=== PATIENT | male | born 1960 | race Caucasian/White ===

== ENCOUNTER 2022-10-31 18:49 | Emergency (ER) | payer MEDICAID, SELFPAY ==
--- NOTE | 2022-10-31 18:51 | XRR_ITS ---
PROCEDURE INFORMATION: Exam: XR Right Foot Exam date and time: 10/31/2022 6:55 PM Age: 62 years old Clinical indication: Pain; Foot; Right; Additional info: Injury TECHNIQUE: Imaging protocol: Radiologic exam of the right foot. Views: 3 or more views. COMPARISON: No relevant prior studies available. FINDINGS: Bones/joints: No acute fracture or dislocation. Mineralization is normal. Mild degenerative change at the great toe MTP joint. Joints are otherwise maintained. Soft tissues: Soft tissue swelling of the anterior ankle and dorsal foot. XR/XR foot RT min 3V* [id number] IMPRESSION: Soft tissue swelling without acute fracture.
[2022-10-31 18:59] VITALS: BP 104/59; PULSE 87; RESP 16; TEMP 36.7; O2SAT 98; BMI 25.0
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
[2022-10-31 19:28] VITALS: BP 135/66; PULSE 93; RESP 18; O2SAT 100
[2022-10-31 19:38] LABS: Basophils % 0.3 %; Hematocrit 35.2 % (42.0-52.0); Hemoglobin 11.4 g/dL (11.7-16.6); Lymphocytes # 0.3 10^3/uL (0.8-4.8); Mean Corpuscular HGB Conc 32.4 g/dL (30.0-36.0); Mean Corpuscular Hemoglobin 23.7 pg (28.0-34.0); Mean Platelet Volume 10.8 fL (7.4-10.4); Monocytes # 0.2 10^3/uL (0.2-0.9); Monocytes % 6.1 %; Neutrophils # 3.18 10^3/uL (1.8-7.7); Neutrophils % 84.8 %; Nucleated Red Blood Cells % 0 %; Platelet Count 76 10^3/cmm (130-400); Red Blood Count 4.82 10^6/uL (4.1-5.3); Red Cell Distribution Width 16.1 % (12.1-15.1); White Blood Count 3.8 10^3/uL (4.0-10.0)
[2022-10-31 19:47] LABS: Anion Gap 11.1 (5-19); Blood Urea Nitrogen 15 mg/dL (8-23); C Reactive Protein 104.8 mg/L (0.0-4.9); Carbon Dioxide 27 mmol/L (22-29); Chloride 91 mmol/L (98-107); Creatinine Clr Calc Pharmacy 82.6824; Glomerular Filtration Rate 85.5 mL/min (90-130); Glucose 99 mg/dL (65-115); Osmolality Calculated 263 mOsm/kg (285-295); Potassium 3.1 mmol/L (3.5-5.1); Sodium 126 mmol/L (136-145); Uric Acid 3.8 mg/dL (3.4-7.0)
[2022-10-31] MEDS: sodium chloride 0.9% 1,000 ML 999 ML IV (20:00)
[2022-10-31] MEDS: cefTRIAXone 1,000 MG in sodium chloride 0.9% (plus) 50 ML 100 MG IV (20:01)
[2022-10-31 20:08] VITALS: BP 140/75; PULSE 99; RESP 18; O2SAT 99
[2022-10-31 21:30] VITALS: BP 124/70; PULSE 98; RESP 18; O2SAT 98
[2022-10-31 21:32] VITALS: BP 124/70; PULSE 95; RESP 18; O2SAT 97
== END 2022-10-31 21:41 | disposition home or self-care (01) ==
PROVIDERS: Emergency Provider Nurse Practitioner Family
DX: L03.115 Cellulitis of right lower limb (principal); L02.415 Cutaneous abscess of right lower limb; E86.0 Dehydration
CPT/HCPCS: 73630; 80048; 84550; 85025; 86140; 93971; 96365; 99285; J0696; J7030

== ENCOUNTER 2023-03-22 05:02 | Emergency (ER) | payer MEDICAID, SELFPAY ==
[2023-03-22 05:13] VITALS: BP 174/101; PULSE 100; RESP 18; TEMP 37.3; O2SAT 98
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
[2023-03-22 05:18] LABS: Glucose Point of Care 87 mg/dL (70-110)
--- NOTE | 2023-03-22 05:21 | ECG_ITS ---
[facility] Test Date: 2023-03-22 Pat Name: Ashish Forrest Department: Room: Gender: Male Radio Installer: : 1960 Requested By: Ike Ledezma Order Number: [id number] Carol MD: Iman Olson M.D. Measurements Intervals [place] Rate: 99 P: 72 FL: 140 QRS: 65 QRSD: 89 T: 56 QT: 352 QTc: 452 Interpretive Statements SINUS RHYTHM Normal EKG No previous ECG available for comparison Electronically Signed On 03-22-2023 16:35:29 EVENT SECURITY OFFICER by Iman Olson M.D. [email or web address] system [id number] f
--- NOTE | 2023-03-22 05:21 | XRR_ITS ---
PROCEDURE INFORMATION: Exam: XR Chest Exam date and time: 03/22/2023 5:25 AM Age: 63 years old Clinical indication: Chest wall pain; Additional info: Cp TECHNIQUE: Imaging protocol: Radiologic exam of the chest. Views: 1 view. COMPARISON: No relevant prior studies available. FINDINGS: Lungs: Calcified granuloma in the left lower lobe. No acute infiltrate or effusion. Pleural spaces: Unremarkable. No pleural effusion. No pneumothorax. Heart/Mediastinum: Unremarkable. No cardiomegaly. Bones/joints: Unremarkable. XR/XR chest 1V portable [id number] IMPRESSION: No acute findings.
[2023-03-22 05:25] LABS: Basophils % 0.2 %; Hematocrit 32.4 % (37-53); Lymphocytes # 0.6 10^3/uL (0.8-4.8); Mean Corpuscular HGB Conc 31.5 g/dL (30-55); Mean Platelet Volume 9.6 fL (7.4-10.4); Monocytes # 0.3 10^3/uL (0.2-0.9); Monocytes % 6.6 %; Neutrophils % 80.2 %; Nucleated Red Blood Cells % 0 %; Platelet Count 115 10^3/cmm (157-399); Red Blood Count 4.44 10^6/uL (3.85-5.65); White Blood Count 4.24 10^3/uL (3.29-11.43)
[2023-03-22 05:41] LABS: Troponin(5th) Baseline 9 ng/L (0-15)
[2023-03-22 05:43] LABS: Alanine Aminotransferase 36 U/L (0-41); Albumin Level 3.6 g/dL (3.5-5.2); Alkaline Phosphatase 101 U/L (40-130); Chloride 100 mmol/L (98-107); Sodium 133 mmol/L (136-145)
[2023-03-22 05:57] LABS: Aspartate Amino Transferase 39 U/L (0-40); Blood Urea Nitrogen 17 mg/dL (8-23); Calcium 8.9 mg/dL (8.5-10.5); Carbon Dioxide 24 mmol/L (22-29); Creatinine Clr Calc Pharmacy 71.5197; Globulin 5.1 g/dL (1.3-4.6); Glomerular Filtration Rate 75.5 mL/min (90-130); Glucose 83 mg/dL (65-115); Osmolality Calculated 277 mOsm/kg (285-295); Total Bilirubin 0.7 mg/dL (0.15-1.2); Total Protein 8.7 g/dL (6.6-8.7)
[2023-03-22 06:19] VITALS: BP 174/101; PULSE 100; RESP 18; TEMP 37.3; O2SAT 98
== END 2023-03-22 06:20 | disposition home or self-care (01) ==
PROVIDERS: Emergency Provider Emergency Medicine
DX: L03.115 Cellulitis of right lower limb (principal)
CPT/HCPCS: 36416; 71045; 80053; 82962; 84484; 85025; 93005; 99285

== ENCOUNTER 2023-05-18 18:43 | Emergency (ER) | payer BC, MEDICAID, SELFPAY ==
[2023-05-18] VITALS (10 sets, daily range): BP systolic 110–132; BP diastolic 57–74; PULSE 102–108; RESP 17–22; TEMP 36.6; O2SAT 95–100
--- NOTE | 2023-05-18 19:02 | CTR_ITS ---
PROCEDURE INFORMATION: Exam: CT Abdomen And Pelvis With Contrast Exam date and time: 05/18/2023 7:09 PM Age: 63 years old Clinical indication: Vomiting; Patient HX: Active hematemesis. ; Additional info: Upper gi bleeding TECHNIQUE: Imaging protocol: Computed tomography of the abdomen and pelvis with contrast. Radiation optimization: All CT scans at this facility use at least one of these dose optimization techniques: automated exposure control; mA and/or kV adjustment per patient size (includes targeted exams where dose is matched to clinical indication); or iterative reconstruction. Contrast material: OMNI 350; Contrast volume: 100 ml; Contrast route: INTRAVENOUS (IV); COMPARISON: CR XR chest 1V portable [id number] 03/22/2023 5:25 AM RADIATION DOSE METRICS: Total DLP (mGy-cm): 570.87 FINDINGS: Liver: Cirrhotic liver with hypertrophy of the lateral segment left lobe and caudate lobe. There is a 2.4 x 1.8 cm hypodense lesion in the lateral cortex of the lobe of the liver (series 3, image 33). Given the underlying liver cirrhosis this is concerning for hepatocellular carcinoma until proven otherwise. Consider liver MRI for further evaluation. Gallbladder and bile ducts: Multiple peripherally calcified stones in the gallbladder. Pancreas: Normal. No ductal dilation. Spleen: Splenomegaly with the spleen measuring up to 16.4 cm in length. Multiple punctate calcifications in the spleen consistent with prior granulomatous infection. Adrenal glands: Normal. No mass. Kidneys and ureters: Normal. No hydronephrosis. Stomach and bowel: Unremarkable. No obstruction. No mucosal thickening. Appendix: No evidence of appendicitis. Intraperitoneal space: Unremarkable. No free air. No significant fluid collection. Vasculature: Esophageal varices and upper abdominal varices present. Severe atherosclerotic disease abdominal aorta. Lymph nodes: Multiple enlarged upper abdominal lymph nodes including a peripancreatic lymph node measuring up to 13 mm in short axis and an aortocaval lymph node measuring up to 8 mm in short axis. While these may be reactive in nature metastatic disease can not be excluded on this examination. Urinary bladder: Unremarkable as visualized. Reproductive: Unremarkable as visualized. Bones/joints: Unremarkable. No acute fracture. Soft tissues: Unremarkable. CT/CT abdomen pelvis w con* [id number] IMPRESSION: 1. Cirrhotic liver with hypertrophy of the lateral segment left lobe and caudate lobe. There is a 2.4 x 1.8 cm hypodense lesion in the lateral cortex of the lobe of the liver (series 3, image 33). Given the underlying liver cirrhosis this is concerning for hepatocellular carcinoma until proven otherwise. Consider liver MRI for further evaluation. 2. Multiple enlarged upper abdominal lymph nodes including a peripancreatic lymph node measuring up to 13 mm in short axis and an aortocaval lymph node measuring up to 8 mm in short axis. While these may be reactive in nature metastatic disease can not be excluded on this examination. 3. Esophageal varices and upper abdominal varices present.
--- NOTE | 2023-05-18 19:03 | ECG_ITS ---
[facility] Test Date: 2023-05-18 Pat Name: Ashish Forrest Department: Room: Gender: Male Political Science Chair: : 1960 Requested By: Dashawn Aldana Order Number: [id number] Carol MD: Ana Lilia Pace M.D. Measurements Intervals [place] Rate: 103 P: 60 DE: 143 QRS: 25 QRSD: 89 T: 55 QT: 367 QTc: 482 Interpretive Statements SINUS TACHYCARDIA ABNORMAL RHYTHM ECG Compared to ECG 03/22/2023 05:19:29 Sinus rhythm no longer present Electronically Signed On 05-19-2023 21:55:36 INSULATION POWER UNIT TENDER by Ana Lilia Pace M.D. [email or web address] county [email or web address] healthcare system [email or web address]/[id number] f
[2023-05-18] MEDS: iohexol 350 mg/mL 500 mL Btl (per mL) IV (19:13)
[2023-05-18] MEDS: tranexamic acid 1,000 MG/100 ML PREMIX 600 MG IV (19:17)
[2023-05-18] MEDS: pantoprazole 40 mg SDV 80 MG IVP (19:19)
[2023-05-18] MEDS: octreotide 100 mcg/mL SDV 50 MCG IVP (19:20)
[2023-05-18] MEDS: lactated ringers 1,000 ML 999 ML IV (19:25)
[2023-05-18 19:26] LABS: Basophils % 0.7 %; Lymphocytes # 0.5 10^3/uL (0.8-4.8); Lymphocytes % 17.6 %; Mean Corpuscular HGB Conc 30.6 g/dL (30-55); Mean Corpuscular Hemoglobin 22.1 pg (27-33); Mean Corpuscular Volume 72.3 fl (82-101); Mean Platelet Volume 9.9 fL (7.4-10.4); Monocytes # 0.2 10^3/uL (0.2-0.9); Neutrophils # 2.24 10^3/uL (1.8-7.7); Neutrophils % 74.4 %; Nucleated Red Blood Cells % 0 %; Platelet Count 117 10^3/cmm (157-399); Red Blood Count 2.71 10^6/uL (3.85-5.65); Red Cell Distribution Width 17.3 % (12.1-15.1); White Blood Count 3.01 10^3/uL (3.29-11.43)
[2023-05-18 19:31] LABS: Hematocrit 19.6 % (37-53)
[2023-05-18 19:33] LABS: Partial Thromboplastin Time 30.1 SECONDS (23.9-36.7)
[2023-05-18 19:37] LABS: Alanine Aminotransferase 24 U/L (0-41); Albumin Level 2.4 g/dL (3.5-5.2); Alkaline Phosphatase 62 U/L (40-130); Anion Gap 10.7 (5-19); Aspartate Amino Transferase 24 U/L (0-40); Blood Urea Nitrogen 18 mg/dL (8-23); Calcium 7.4 mg/dL (8.5-10.5); Carbon Dioxide 24 mmol/L (22-29); Chloride 100 mmol/L (98-107); Globulin 3.9 g/dL (1.3-4.6); Glomerular Filtration Rate 97.6 mL/min (90-130); Glucose 127 mg/dL (65-115); Lipase 23 U/L (13-60); Osmolality Calculated 275 mOsm/kg (285-295); Potassium 3.7 mmol/L (3.5-5.1); Sodium 131 mmol/L (136-145); Total Bilirubin 0.4 mg/dL (0.15-1.2); Total Protein 6.3 g/dL (6.6-8.7)
[2023-05-18 19:39] LABS: Alcohol Level < 10 mg/dL (0-10)
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
[2023-05-18 20:16] LABS: Specific Gravity, Urine 1.015 (1.005-1.030); Urine Appearance Clear (CLEAR); Urine Color Yellow (Yellow); pH Urine 5 (5-7)
[2023-05-18 20:17] LABS: Add Urine Microscopic? YES; Bacteria Urine TRACE /hpf; Bilirubin Urine Neg (Negative); Blood Urine 2+ (Negative); Glucose Urine UA Norm (Normal); Ketones Urine Negative (Negative); Leukocyte Esterase Urine Trace (Negative); Nitrate Urine Negative (Negative); Protein Urine Trace (Negative); RBC Urine 0-4 /hpf (0-2); Squamous Epithelial Cell Urine 0-4 /hpf (0-5); Urobilinogen Urine 4 mg/dL (Negative)
[2023-05-18 20:18] LABS: Add Urine Culture? Yes; Amorphous Sediment Urine TRACE /hpf; Hyaline Casts Urine 0-4 /lpf
[2023-05-18] MEDS: sodium chloride 0.9% 100 mL Bag 50 ML IV ×2 (20:31→20:42)
--- NOTE | 2023-05-18 20:39 | PC.NURSE ---
Verified 2 units PRBC- A pos with keyana martin rn.
== END 2023-05-18 20:58 | disposition short-term general hospital (02) ==
PROVIDERS: Emergency Provider Emergency Medicine
DX: K92.2 Gastrointestinal hemorrhage, unspecified (principal); I85.00 Esophageal varices without bleeding
CPT/HCPCS: 36430; 74177; 80053; 80307; 81001; 83690; 85025; 85610; 85730; 86850; 86900; 86920; 87086; 93005; 96361; 96374; 96375; 99285; C9113; J2354; J7120; P9016; Q9967

== ENCOUNTER 2023-07-16 18:36 | Emergency (ER) | payer BC, MEDICAID, SELFPAY ==
[2023-07-16 19:05] VITALS: BP 158/71; PULSE 127; RESP 16; TEMP 37.7; O2SAT 97
--- NOTE | 2023-07-16 19:24 | W.ED.GENADLT ---
HPI - General Adult General: Chief complaint: General Medical Stated complaint: nausea head neck and stomach hurt Time Seen by Provider: 07/16/23 19:14 History of Present Illness: 63-year-old male presents emergency department with complaints of feeling nauseated having a headache and chills over the previous 3 days. He states he is also had watery diarrhea for the previous 3 days. He states that he has a history of alcohol use and has not drank now for the previous 18 years. He states in April he was seen and transferred for esophageal varices that were bleeding. He states he does feel nauseated but has not had any active vomiting. He states he was diagnosed with hepatitis C and cirrhosis of the liver previously. He does endorse recent sick contacts with similar illnesses. He states he has had fatigue and malaise over the same 3 days. He states he is not actively receiving treatment for his hepatitis C. He denies chest pain or shortness of breath. Associated symptoms: Reports nausea; Deny vomiting Review of Systems General: Reports: 10 or more systems reviewed and unremarkable except in HPI and below GI: Reports: abdominal pain and nausea; Denies: vomiting, hematemesis, hematochezia or melena Physical Exam Narrative: EXAM NARRATIVE: Constitutional: the patient appears well nourished and with normal development. Vital signs reviewed as documented. HENMT: Normocephalic, atraumatic. External ears normal appearance without drainage. Nose without drainage, normal appearance. Mucus membranes moist. Neck is supple, No jugular venous distension, trachea is midline, no appreciable carotid bruits. No lymphadenopathy. No meningeal signs. Flexion, extension and lateral rotation is without pain. Eyes: Pupils are equal, round, reactive to light and accommodation. No scleral icterus. Extra-ocular movement are intact. Thorax is symmetrical and with equal rise and fall with respirations. Resp: Lungs are clear to auscultation. No wheezes, rales, crackles or ronchi at present. Cardio: Regular rate and rhythm. Positive S1, S2. No appreciable murmurs, rubs or gallops. GI: Abdominal exam reveals normal bowel sounds to all quadrants. No organomegaly. No obvious palpable masses noted. No hepatomegally appreciated. Soft, non-tender to palpation. Extremity: Extremities are non-edematous and both femoral and pedal pulses are 2+ and equal bilaterally. Moves all extremities well, sensation in all extremities. Neuro: Alert and oriented x4, person, place, time and situation. Cranial nerves II through XII are grossly intact, there is no focal neurological deficits that I can appreciate at present. Motor strength in the upper and lower extremities are equal and bilateral 5/5. Psych: Cooperative, calm, normal thought process, appropriate judgment. Skin: No lesions, rashes. No gross abnormalities noted. Back: Symmetrical, no obvious deformity, No CVA tenderness Course Reevaluation(s): Reevaluation #1: I discussed the laboratory findings with the patient and advised him that we are currently awaiting the CT scan of his abdomen pelvis. He did have a large watery bowel movement while he was here in the emergency department. Time: 20:54 Vital Signs: Vital signs: Vital Signs Temperature 99.8 F H 07/16/23 19:05 Pulse Rate 122 H 07/16/23 20:38 Respiratory Rate 16 07/16/23 20:38 Blood Pressure 160/89 07/16/23 20:38 Pulse Oximetry 97 07/16/23 20:38 Oxygen Delivery Me thod Room Air 07/16/23 19:05 [facility] - General Adult Medical Decision Making Physical exam completed and documented I will obtain a CBC and CMP as well as a PT/INR and a lipase level given his history of cirrhosis. Patient does have a history of cirrhosis secondary to alcohol abuse he also has esophageal varices that he had banded in April 2022 per the patient's medical record. Differential diagnosis includes hepatic encephalopathy, gastroenteritis, anemia secondary to chronic disease, worsening cirrhosis, hepatic failure, spontaneous bacterial peritonitis, Differential Diagnosis Differential diagnosis includes hepatic encephalopathy, gastroenteritis, anemia secondary to chronic disease, worsening cirrhosis, hepatic failure, spontaneous bacterial peritonitis, Medical Records I reviewed the patient's medical records. Lab Data I reviewed the patient's lab results. 07/16/23 19:12 07/16/23 19:12 Radiology Impressions Abdomen/Pelvis CT 07/16/23 20:07 IMPRESSION: 1. Diffuse thickening of the gastric wall that may be secondary to gastritis or underdistension. 2. Cholelithiasis and mild common bile duct dilatation to 9 mm. Right upper quadrant ultrasound may be helpful if clinically indicated. 3. Cirrhotic liver with 2 suspicious hypodense lesions in the right lobe. Consider MRI for further characterization. 4. Marked splenomegaly. 5. Prominent splenic hilum and paraesophageal varices. 6. Punctate right nonobstructive nephrolithiasis. Laboratory Results WBC 6.65 10^3/uL (3.29-11.43) 07/16/23 19:12 RBC 4.35 10^6/uL (3.85-5.65) 07/16/23 19:12 Hgb 9.00 g/dL (11.27-16.99) L 07/16/23 19:12 Hct 30.3 % (37-53) L 07/16/23 19:12 MCV 69.7 fl (82-101) L 07/16/23 19:12 MCH 20.7 pg (27-33) L 07/16/23 19:12 MCHC 29.7 g/dL (30-55) L 07/16/23 19:12 RDW 17.0 % (12.1-15.1) H 07/16/23 19:12 Plt Count 95 10^3/cmm (157-399) L 07/16/23 19:12 MPV 9.7 fL (7.4-10.4) 07/16/23 19:12 Neut % (Auto) 93.1 % 07/16/23 19:12 Lymph % (Auto) 3.8 % 07/16/23 19:12 [place] % (Auto) 2.6 % 07/16/23 19:12 Eos % (Auto) 0.0 % 07/16/23 19:12 Baso % (Auto) 0.2 % 07/16/23 19:12 Neut # (Auto) 6.20 10^3/uL (1.8-7.7) 07/16/23 19:12 Lymph # (Auto) 0.3 10^3/uL (0.8-4.8) L 07/16/23 19:12 [place] # (Auto) 0.2 10^3/uL (0.2-0.9) 07/16/23 19:12 Eos # (Auto) 0.0 10^3/uL (0.0-0.8) 07/16/23 19:12 Baso # (Auto) 0.0 10^3/uL (0.0-0.1) 07/16/23 19:12 Nucleated RBC % (auto) 0 % 07/16/23 19:12 Nucleated RBCs # 0.0 /100WBC 07/16/23 19:12 PT 16.00 SECONDS (12.1-14.9) H 07/16/23 19:12 INR 1.24 (0.8-1.2) H 07/16/23 19:12 Sodium 135 mmol/L (136-145) L 07/16/23 19:12 Potassium 3.6 mmol/L (3.5-5.1) 07/16/23 19:12 Chloride 101 mmol/L (98-107) 07/16/23 19:12 Carbon Dioxide 25 mmol/L (22-29) 07/16/23 19:12 Anion Gap 12.6 (5-19) 07/16/23 19:12 BUN 16 mg/dL (8-23) 07/16/23 19:12 Creatinine 0.9 mg/dL (0.7-1.2) 07/16/23 19:12 GFR Calculation 85.2 mL/min (90-130) L 07/16/23 19:12 Glucose 113 mg/dL (65-115) 07/16/23 19:12 Calculated Osmolality 282 mOsm/kg (285-295) L 07/16/23 19:12 Calcium 8.8 mg/dL (8.5-10.5) 07/16/23 19:12 Total Bilirubin 0.8 mg/dL (0.15-1.2) 07/16/23 19:12 AST 28 U/L (0-40) 07/16/23 19:12 ALT 18 U/L (0-41) 07/16/23 19:12 Alkaline Phosphatase 85 U/L (40-130) 07/16/23 19:12 Total Protein 8.7 g/dL (6.6-8.7) 07/16/23 19:12 Albumin 3.7 g/dL (3.5-5.2) 07/16/23 19:12 Globulin 5.0 g/dL (1.3-4.6) H 07/16/23 19:12 Lipase 28 U/L (13-60) 07/16/23 19:12 All radiology interpretation(s) finalized by discharge Discharge Plan Discharge Patient Disposition: Home Clinical Impression: Gastroenteritis, Anemia in chronic illness, Cirrhosis of liver Condition: Stable Prescriptions: New ondansetron HCl 4 mg tablet 4 mg PO Q6H PRN (Reason: nausea and vomiting) Qty: 14 0RF loperamide 2 mg tablet 2 mg PO QID PRN (Reason: loose stool) Qty: 30 0RF No Action amoxicillin-pot clavulanate 875-125 mg tablet 1 tab PO BID Qty: 20 0RF Discharge Orders: Discharge ED (Routine); Ordered 07/16/23 Ordered By: Jimy Valle Discharge Diet: Advance as tolerated Discharge Activity: Resume usual activity Patient Instructions: Opioid Safety, Pain Management Activity Restrictions/Additional Instructions: Activity Restrictions/Additional Instructions: Thank you for choosing [facility] for your healthcare needs today. Please realize that you were seen in the Emergency Department and that we are providing you with an emergency medical screening exam and this may not be a complete and all inclusive of all the testing and or medical work-up that you may need to determine your ailment or severity of your illness. It is very important that you follow-up as instructed with your Primary care provider or Specialist for additional evaluation and to discuss your medical treatment plan. Coding Level of Care Code ED Dampener Operator for Tessie Kearney
[2023-07-16 19:29] LABS: Basophils % 0.2 %; Hematocrit 30.3 % (37-53); Lymphocytes # 0.3 10^3/uL (0.8-4.8); Lymphocytes % 3.8 %; Mean Corpuscular HGB Conc 29.7 g/dL (30-55); Mean Corpuscular Hemoglobin 20.7 pg (27-33); Mean Corpuscular Volume 69.7 fl (82-101); Mean Platelet Volume 9.7 fL (7.4-10.4); Monocytes # 0.2 10^3/uL (0.2-0.9); Monocytes % 2.6 %; Neutrophils % 93.1 %; Nucleated Red Blood Cells % 0 %; Platelet Count 95 10^3/cmm (157-399); Red Blood Count 4.35 10^6/uL (3.85-5.65); White Blood Count 6.65 10^3/uL (3.29-11.43)
[2023-07-16 19:32] VITALS: BP 159/84; PULSE 104; RESP 18; O2SAT 97
[2023-07-16 19:43] LABS: INR 1.24 (0.8-1.2)
[2023-07-16 19:47] LABS: Alanine Aminotransferase 18 U/L (0-41); Albumin Level 3.7 g/dL (3.5-5.2); Alkaline Phosphatase 85 U/L (40-130); Anion Gap 12.6 (5-19); Aspartate Amino Transferase 28 U/L (0-40); Blood Urea Nitrogen 16 mg/dL (8-23); Calcium 8.8 mg/dL (8.5-10.5); Carbon Dioxide 25 mmol/L (22-29); Chloride 101 mmol/L (98-107); Creatinine Clr Calc Pharmacy 80.5444; Glomerular Filtration Rate 85.2 mL/min (90-130); Glucose 113 mg/dL (65-115); Lipase 28 U/L (13-60); Osmolality Calculated 282 mOsm/kg (285-295); Potassium 3.6 mmol/L (3.5-5.1); Sodium 135 mmol/L (136-145); Total Bilirubin 0.8 mg/dL (0.15-1.2); Total Protein 8.7 g/dL (6.6-8.7)
--- NOTE | 2023-07-16 20:07 | CTR_ITS ---
PROCEDURE INFORMATION: Exam: CT Abdomen And Pelvis With Contrast Exam date and time: 07/16/2023 8:15 PM Age: 63 years old Clinical indication: Abdominal pain; Patient HX: Epigastric pain with nausea. History of esophageal varices and cirrhosis. ; Additional info: Abd pain TECHNIQUE: Imaging protocol: Computed tomography of the abdomen and pelvis with contrast. Radiation optimization: All CT scans at this facility use at least one of these dose optimization techniques: automated exposure control; mA and/or kV adjustment per patient size (includes targeted exams where dose is matched to clinical indication); or iterative reconstruction. Contrast material: OMNI 350; Contrast volume: 100 ml; Contrast route: INTRAVENOUS (IV); COMPARISON: CT abdomen pelvis w con* [id number] 05/18/2023 7:09 PM RADIATION DOSE METRICS: Total DLP (mGy-cm): 518.36 FINDINGS: Lungs: The lung bases demonstrate calcified granulomas in the lingula and right lower lobe. No consolidation. Esophagus: Paraesophageal varices are seen on the included, lower esophagus. Liver: A shrunken cirrhotic liver with hypertrophy of the lateral segment of the left lobe and caudate lobe. There are now 2 suspicious hypodense lesions in the right lobe of the liver, 1 at the dome and 2nd on the lateral aspect. Gallbladder and bile ducts: There are multiple calcified gallstones. There is no significant gallbladder wall thickening or pericholecystic fluid. There are multiple calcified gallstones. There is no significant gallbladder wall thickening or pericholecystic fluid. There is mild or bile duct dilatation to 9 mm. Pancreas: Normal in size and homogeneous enhancement. No ductal dilation. Spleen: The spleen measured 20.8 cm in length. Adrenal glands: The adrenal glands are normal. Kidneys and ureters: There is no hydronephrosis. No obstructive ureteral calculi are identified. In the right kidney, there is a punctate 3 mm nonobstructing calculus. Stomach and bowel: There is no evidence of small bowel or colonic obstruction. Diffuse thickening of the gastric wall that may be secondary to gastritis or underdistension. Appendix: A normal appendix is identified. Intraperitoneal space: No free air. No significant fluid collection. Vasculature: Prominent splenic hilum and paraesophageal varices. There is mild atherosclerotic calcification of the abdominal aorta and its branches without aneurysm. Lymph nodes: No enlarged retroperitoneal or mesenteric lymph nodes. Urinary bladder: The bladder shows a normal contour and is free of calcific opacities. Reproductive: Unremarkable as visualized. Bones/joints: No acute fracture. Soft tissues: A small umbilical hernia containing a loop of bowel. CT/CT abdomen pelvis w con* [id number] IMPRESSION: 1. Diffuse thickening of the gastric wall that may be secondary to gastritis or underdistension. 2. Cholelithiasis and mild common bile duct dilatation to 9 mm. Right upper quadrant ultrasound may be helpful if clinically indicated. 3. Cirrhotic liver with 2 suspicious hypodense lesions in the right lobe. Consider MRI for further characterization. 4. Marked splenomegaly. 5. Prominent splenic hilum and paraesophageal varices. 6. Punctate right nonobstructive nephrolithiasis.
[2023-07-16] MEDS: iohexol 350 mg/mL 500 mL Btl (per mL) IV (20:15)
[2023-07-16 20:38] VITALS: BP 160/89; PULSE 122; RESP 16; O2SAT 97
== END 2023-07-16 21:05 | disposition home or self-care (01) ==
PROVIDERS: Emergency Medicine; Emergency Provider Internal Medicine
DX: K52.9 Noninfective gastroenteritis and colitis, unspecified (principal); D63.8 Anemia in other chronic diseases classified elsewhere; K74.60 Unspecified cirrhosis of liver
CPT/HCPCS: 36415; 74177; 80053; 83690; 85025; 85610; 99285; Q9967

== ENCOUNTER 2024-03-11 13:38 | Emergency (ER) | payer BC, MEDICAID, SELFPAY ==
[2024-03-11 13:42] VITALS: BP 134/76; PULSE 90; RESP 16; TEMP 37.1; O2SAT 99; BMI 22.8
[2024-03-11 14:42] VITALS: BP 123/70; PULSE 86; RESP 14; O2SAT 99
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
[2024-03-11] MEDS: cefTRIAXone 1,000 MG in water for injection-sterile 2.1 ML 1 MG IM (15:03)
[2024-03-11 15:17] VITALS: BP 136/74; PULSE 83; O2SAT 99
== END 2024-03-11 15:18 | disposition home or self-care (01) ==
PROVIDERS: Emergency Provider Physician Assistant
DX: L02.415 Cutaneous abscess of right lower limb (principal)
CPT/HCPCS: 96372; 99284; J0696

== ENCOUNTER 2024-04-19 16:28 | Emergency (ER) | payer BC, MEDICAID, SELFPAY ==
[2024-04-19 16:32] VITALS: BP 126/67; PULSE 89; RESP 16; TEMP 36.3; O2SAT 99; BMI 24.3
[2024-04-19 17:00] LABS: Basophils % 0.5 %; Hematocrit 39.6 % (37-53); Lymphocytes # 0.5 10^3/uL (0.8-4.8); Lymphocytes % 12.8 %; Mean Corpuscular HGB Conc 30.6 g/dL (30-55); Mean Corpuscular Hemoglobin 21.7 pg (27-33); Mean Corpuscular Volume 71.1 fl (82-101); Mean Platelet Volume 9.3 fL (7.4-10.4); Monocytes # 0.3 10^3/uL (0.2-0.9); Monocytes % 6.6 %; Neutrophils # 3.24 10^3/uL (1.8-7.7); Neutrophils % 79.6 %; Nucleated Red Blood Cells % 0 %; Platelet Count 126 10^3/cmm (157-399); Red Blood Count 5.57 10^6/uL (3.85-5.65); Red Cell Distribution Width 17.2 % (12.1-15.1); White Blood Count 4.07 10^3/uL (3.29-11.43)
[2024-04-19 17:19] LABS: Alanine Aminotransferase 26 U/L (0-41); Albumin Level 3.2 g/dL (3.5-5.2); Alkaline Phosphatase 79 U/L (40-130); Anion Gap 11.5 (5-19); Aspartate Amino Transferase 34 U/L (0-40); Blood Urea Nitrogen 11 mg/dL (8-23); Carbon Dioxide 27 mmol/L (22-29); Chloride 98 mmol/L (98-107); Creatinine Clr Calc Pharmacy 89.4356; Globulin 5.5 g/dL (1.3-4.6); Glomerular Filtration Rate 97.3 mL/min (90-130); Glucose 102 mg/dL (65-115); Lipase 20 U/L (13-60); Osmolality Calculated 274 mOsm/kg (285-295); Potassium 4.5 mmol/L (3.5-5.1); Sodium 132 mmol/L (136-145); Total Protein 8.7 g/dL (6.6-8.7)
--- NOTE | 2024-04-19 17:38 | XRR_ITS ---
PROCEDURE INFORMATION: Exam: XR Complete Acute Abdomen Series Including Chest Exam date and time: 04/19/2024 5:43 PM Age: 64 years old Clinical indication: Constipation; Abdominal pain; Generalized; Additional info: Luq llq abd pain, no bm in 5 days TECHNIQUE: Imaging protocol: Radiologic exam. Complete acute abdomen series, including 2 or more views of the abdomen and a single view chest. COMPARISON: CT abdomen pelvis w con* [id number] 07/16/2023 8:15 PM FINDINGS: Lungs: Calcified granulomas in the lung bases. The lungs are otherwise clear. No consolidation. Pleural spaces: Normal. No pleural effusions. No pneumothorax. Heart/Mediastinum: Normal. No cardiomegaly. Gastrointestinal tract: Scattered gas and stool in normal caliber colon. Gas-filled small bowel measuring up to 2.5 cm. No obstruction or differential air-fluid levels. Intraperitoneal space: No visible pneumoperitoneum. Bones/joints: Normal. No acute fracture. Soft tissues: Normal. XR/XR acute abdomen series [id number] IMPRESSION: 1. Nonspecific nonobstructive bowel gas pattern. 2. No acute pulmonary findings.
[2024-04-19 18:01] VITALS: BP 131/86; PULSE 92; O2SAT 100
[2024-04-19 18:40] LABS: Influenza A NEGATIVE (Negative); Influenza B NEGATIVE (Negative); Respiratory Syncytial Virus Ce NEGATIVE (Negative)
[2024-04-19 18:51] VITALS: PULSE 80; RESP 16; O2SAT 100
[2024-04-19 19:12] LABS: Covid PCR Positive (Negative)
[2024-04-19 19:36] LABS: Bilirubin Urine Negative (Negative); Blood Urine Negative (Negative); Glucose Urine UA Negative (Normal); Ketones Urine Negative (Negative); Leukocyte Esterase Urine Negative (Negative); Nitrate Urine Negative (Negative); Protein Urine Trace (Negative); Specific Gravity, Urine 1.021 (1.005-1.030); Urine Appearance Cloudy (CLEAR); Urine Color Dark Yellow (Yellow)
[2024-04-19 19:41] LABS: Add Urine Microscopic? YES; Bacteria Urine None Seen /hpf; Hyaline Casts Urine 2.05 /lpf; Squamous Epithelial Cell Urine 0-5 /hpf (0-5); WBC Urine 0-5 /hpf (0-5)
--- NOTE | 2024-04-19 20:14 | ED_ITS ---
HPI - Abdominal Pain 2 General: Chief Complaint: Abdominal Pain Stated Complaint: abd pain Time Seen by Provider: 04/19/24 17:30 History of Present Illness: Patient is a 64-year-old man that comes to the ER today with complaints of cough, shortness of breath that is worse than baseline but primary complaint is left upper and lower quadrant abdominal pain. Onset of symptoms 5 days ago. It has also been 5 days since he had a bowel movement that was small. 2 days prior to that he had a normal bowel movement. He denies nausea vomiting Denies fever or chills. Associated Symptoms: Denies bloating, chills, constipation, GI cramping, diarrhea, dysuria, fever(s), hematochezia, hematuria, nausea and vomiting Related Data Previous Rx's Medication Instructions Recorded amoxicillin 875 mg-potassium 1 tab PO BID #20 tabs 10/31/22 clavulanate 125 mg tablet loperamide 2 mg tablet 2 mg PO QID PRN loose stool #30 07/16/23 tabs ondansetron HCl 4 mg tablet 4 mg PO Q6H PRN nausea and 07/16/23 vomiting #14 tabs Allergies Allergy/AdvReac Type Severity Reaction Status Date / Time No Known Allergies Allergy Verified 04/19/24 16:37 Review of Systems 2 General: Reports: 10 or more systems reviewed and unremarkable except in HPI and below Const: Denies: fever(s), chills, change in appetite, change in weight, fatigue or malaise Eyes: Denies: change in vision, eye discomfort, eye discharge or eye redness ENMT: Denies: throat pain, enlarged tonsils, odynophagia, hoarseness, ear or mastoid pain, ear discharge, change in hearing, tinnitus, nasal discharge, nasal congestion, post nasal drip or sinus pain Card: Denies: chest pain, palpitations, irregular heart rhythm, edema, dyspnea on exertion, orthopnea or leg pain with exertion Resp: Denies: dyspnea, productive cough, non-productive cough, wheezing, stridor or chest congestion GI: Denies: abdominal pain, nausea, vomiting, dysphagia, diarrhea, constipation, bloating, GI cramping or hematochezia : Denies: flank pain, dysuria, urinary frequency, urinary urgency, urinary hesitancy, oliguria or hematuria Musc: Denies: neck pain, back pain, extremity pain, joint pain, joint swelling, joint redness, joint warmth or muscle weakness Skin/Breast: Denies: rash, pruritus, erythema, photosensitivity or new lesions Neuro: Denies: headache(s), numbness in extremities, weakness in extremities, sensory changes, lack of coordination, difficulty walking, frequent falls, dizziness, confusion, Slurred speech present, difficulty communicating thoughts, seizure-like activity or involuntary movements Endo: Denies: polyuria, polydipsia or tired all the time Tarik/Lymph: Denies: easy bruising or easy bleeding Physical Exam 2 Const: COMMON NORMALS: no acute distress, patient oriented x3 and alert G ENERAL APPEARANCE: cooperative ORIENTATION/CONSCIOUSNESS: Yes awake, Yes oriented to person, Yes oriented to place and Yes oriented to time HENMT: COMMON NORMALS: normocephalic and atraumatic HEAD & SCALP: n ormocephalic and atraumatic FACE & SINUS: normal facial exam MOUTH: Normal oral and palatal mucosa present THROAT: posterior oropharynx normal Eye: COMMON NORMALS: Equal, round and reactive pupils present, EOMs intact bilaterally, conjunctivae normal and no scleral icterus GENERAL EYE: a ppearance normal, both eyes and all related structures ALIGNMENT: Yes alignment normal PERIORBITAL: periorbital findings normal CONJUNCTIVA: Yes conjunctivae normal PUPIL: Yes Equal, round and reactive pupils present Neck/C-Spine: COMMON NORMALS: full ROM GENERAL: Yes normal visual inspection Lymph: LYMPHATIC: no lymphadenopathy noted Chest: COMMONS NORMALS: normal inspection of the chest Breast/axilla inspection: Yes no chest deformity, asymmetry, normal contours, no nodules, masses, tenderness Resp: COMMON NORMALS: normal respiratory effort, No retractions, No use of accessory muscles and clear to auscultation bilaterally EFFORT & INSPECTION: Yes able to speak in complete sentences and Yes symmetric chest movement A USCULTATION: clear to auscultation bilaterally Cardio: COMMON NORMALS: regular rate, regular rhythm and Peripheral pulses 2+ throughout RATE: regular rate RHYTHM: regular rhythm PERIPHERAL PULSES: Peripheral pulses 2+ throughout GI: COMMON NORMALS: Normal to inspection, nondistended, normoactive bowel sounds present, Soft to palpation, non-tender and No hepatosplenomegaly present INSPECTION: Yes normal to inspection AUSCULTATION: Yes normoactive bowel sounds PALPATION: Yes Soft to palpation, Yes Tenderness to palpation present (GI) Details: LLQ and LUQ and Yes No hepatosplenomegaly present RECTAL EXAM: Yes deferred Extremity: COMMON NORMALS: normal to inspection GENERAL: Yes normal exam except as noted Neuro: COMMON NORMALS: patient oriented x3 SENSORIUM/ORIENTATION: Yes alert, Yes oriented to person, Yes oriented to place and Yes oriented to time CRANIAL NERVES: Yes CN normal except as noted Psych: COMMON NORMALS: mental status grossly normal, Normal thought process present, cooperative, activity/motor behavior normal, denies homicidal ideation and denies suicidal ideation THOUGHT PROCESS: Normal thought process present Skin: COMMON NORMALS: no rashes or lesions noted, no wounds and turgor normal GENERAL SKIN EXAM: no rashes or lesions noted and turgor normal Course 2 Vital Signs: Vital signs: Vital Signs Temperature 97.4 F L 04/19/24 16:32 Pulse Rate 80 04/19/24 18:51 Respiratory Rate 16 04/19/24 18:51 Blood Pressure 131/86 04/19/24 18:01 Pulse Oximetry 100 04/19/24 18:51 Oxygen Delivery Me thod Room Air 04/19/24 18:51 MDM - Abdominal Pain Medical Decision Making Patient evaluated in the emergency department today for complaints of abdominal pain and increasing shortness of breath. Patient underwent evaluation for abdominal pain initially. We obtained a XR of the abdomen which reveals stool nonspecific bowel gas pattern. No concern for obstruction. He has been 5 to 7 days since he had a normal bowel movement. Going to send him home with mag citrate Patient underwent laboratory evaluation which revealed thrombocytopenia, that is chronic in nature. The remainder of his labs are otherwise unremarkable. He is COVID-positive without evidence of pneumonia. At this time no further diagnostics are warranted. Regarding mildly monitor his symptoms closely and return to the emergency department for new, concerning, worsening symptoms Lab Data 04/19/24 16:54 04/19/24 16:54 Labs/Radiology: Radiology Impressions Chest/Abdomen X-ray 04/19/24 17:38 IMPRESSION: 1. Nonspecific nonobstructive bowel gas pattern. 2. No acute pulmonary findings. Laboratory Results WBC 4.07 10^3/uL (3.29-11.43) 04/19/24 16:54 RBC 5.57 10^6/uL (3.85-5.65) 04/19/24 16:54 Hgb 12.10 g/dL (11.27-16.99) 04/19/24 16:54 Hct 39.6 % (37-53) 04/19/24 16:54 MCV 71.1 fl (82-101) L 04/19/24 16:54 MCH 21.7 pg (27-33) L 04/19/24 16:54 MCHC 30.6 g/dL (30-55) 04/19/24 16:54 RDW 17.2 % (12.1-15.1) H 04/19/24 16:54 Plt Count 126 10^3/cmm (157-399) L 04/19/24 16:54 MPV 9.3 fL (7.4-10.4) 04/19/24 16:54 Neut % (Auto) 79.6 % 04/19/24 16:54 Lymph % (Auto) 12.8 % 04/19/24 16:54 [place] % (Auto) 6.6 % 04/19/24 16:54 Eos % (Auto) 0.0 % 04/19/24 16:54 Baso % (Auto) 0.5 % 04/19/24 16:54 Neut # (Auto) 3.24 10^3/uL (1.8-7.7) 04/19/24 16:54 Lymph # (Auto) 0.5 10^3/uL (0.8-4.8) L 04/19/24 16:54 [place] # (Auto) 0.3 10^3/uL (0.2-0.9) 04/19/24 16:54 Eos # (Auto) 0.0 10^3/uL (0.0-0.8) 04/19/24 16:54 Baso # (Auto) 0.0 10^3/uL (0.0-0.1) 04/19/24 16:54 Nucleated RBC % (auto) 0 % 04/19/24 16:54 Nucleated RBCs # 0.0 /100WBC 04/19/24 16:54 Sodium 132 mmol/L (136-145) L 04/19/24 16:54 Potassium 4.5 mmol/L (3.5-5.1) 04/19/24 16:54 Chloride 98 mmol/L (98-107) 04/19/24 16:54 Carbon Dioxide 27 mmol/L (22-29) 04/19/24 16:54 Anion Gap 11.5 (5-19) 04/19/24 16:54 BUN 11 mg/dL (8-23) 04/19/24 16:54 Creatinine 0.8 mg/dL (0.7-1.2) 04/19/24 16:54 GFR Calculation 97.3 mL/min (90-130) 04/19/24 16:54 Glucose 102 mg/dL (65-115) 04/19/24 16:54 Calculated Osmolality 274 mOsm/kg (285-295) L 04/19/24 16:54 Calcium 9.0 mg/dL (8.5-10.5) 04/19/24 16:54 Total Bilirubin 1.0 mg/dL (0.15-1.2) 04/19/24 16:54 AST 34 U/L (0-40) 04/19/24 16:54 ALT 26 U/L (0-41) 04/19/24 16:54 Alkaline Phosphatase 79 U/L (40-130) 04/19/24 16:54 Total Protein 8.7 g/dL (6.6-8.7) 04/19/24 16:54 Albumin 3.2 g/dL (3.5-5.2) L 04/19/24 16:54 Globulin 5.5 g/dL (1.3-4.6) H 04/19/24 16:54 Lipase 20 U/L (13-60) 04/19/24 16:54 Urine Color Dark yellow (Yellow) A 04/19/24 19: Urine Appearance Cloudy (CLEAR) A 04/19/24 19:28 Urine pH 7.0 (5-7) 04/19/24 19:28 Ur Specific [place] 1.021 (1.005-1.030) 04/19/24 19: Urine Protein Trace (Negative) A 04/19/24 19: Urine Glucose (UA) Negative (Normal) 04/19/24 19: Urine Ketones Negative (Negative) 04/19/24 19: Urine Blood Negative (Negative) 04/19/24 19: Urine Nitrate Negative (Negative) 04/19/24 19: Urine Bilirubin Negative (Negative) 04/19/24 19:28 Urine Urobilinogen 2.0 mg/dL (Negative) H 04/19/24 19:28 Ur Leukocyte Esterase Negative (Negative) 04/19/24 19:28 Urine RBC 3-5 /hpf (0-2) 04/19/24 19:28 Urine WBC 0-5 /hpf (0-5) 04/19/24 19:28 Ur Squamous Epith Cells 0-5 /hpf (0-5) 04/19/24 19:28 Amorphous Sediment Not Reportable 04/19/24 19:28 Urine Bacteria None seen /hpf (NONE) 04/19/24 19:28 Hyaline Casts 2.05 /lpf 04/19/24 19:28 Coronavirus (PCR) Positive (Negative) A 04/19/24 18:00 Influenza A (PCR) Negative (Negative) 04/19/24 18:00 Influenza Type B (PCR) Negative (Negative) 04/19/24 18:00 RSV (PCR) Negative (Negative) 04/19/24 18:00 All radiology interpretation(s) finalized by discharge Discharge Plan Discharge Patient Disposition: Home Clinical Impression: Constipation, COVID-19 Condition: Stable Prescriptions: No Action amoxicillin-pot clavulanate 875-125 mg tablet 1 tab PO BID Qty: 20 0RF ondansetron HCl 4 mg tablet 4 mg PO Q6H PRN (Reason: nausea and vomiting) Qty: 14 0RF loperamide 2 mg tablet 2 mg PO QID PRN (Reason: loose stool) Qty: 30 0RF Discharge Orders: Discharge ED (Routine); Ordered 04/19/24 Ordered By: Marcela Astorga Discharge Diet: Advance as tolerated Discharge Activity: Resume usual activity Patient Instructions: Opioid Safety, Pain Management, Constipation (ED), COVID- 19 (Coronavirus Disease 2019) (ED) Activity Restrictions/Additional Instructions: You need to quarantine at home away from others. This is going to be for 5 to 7 days.. At 5 days if you are still having symptoms are running fevers you should continue to quarantine at home. If you have to go out please wear a mask. Monitor your symptoms closely. If you feel that you are worsening and need to be reevaluated see your primary care doctor return to the emergency department. With regards to your constipation, I given you a bottle of mag citrate that you are to take tomorrow. Once you take it you will likely start having bowel movements. I would not want you to be up all night having bowel movements. You should start taking stool softeners like Colace, fiber, and drinking plenty of water. This will help you have more regular bowel movements. Coding Level of Care Code ED Tv Host for Tessie Kearney
[2024-04-19] MEDS: magnesium citrate Btl 296 mL PO (20:36)
== END 2024-04-19 20:38 | disposition home or self-care (01) ==
PROVIDERS: Emergency Medicine; Emergency Provider Nurse Practitioner
DX: K59.00 Constipation, unspecified (principal); U07.1 COVID-19; Z11.52 Encounter for screening for COVID-19
CPT/HCPCS: 36415; 74022; 80053; 81001; 83690; 85025; 87637; 99284

== ENCOUNTER 2024-06-08 07:00 | Emergency (ER) | payer SELFPAY ==
[2024-06-08 07:22] VITALS: BP 129/86; PULSE 99; RESP 18; TEMP 36.8; O2SAT 99; BMI 23.5
--- NOTE | 2024-06-08 07:35 | XRR_ITS ---
PROCEDURE INFORMATION: Exam: XR Abdomen Exam date and time: 06/08/2024 7:54 AM Age: 64 years old Clinical indication: Bloating and other: Distension; Additional info: Abdominal distention TECHNIQUE: Imaging protocol: Radiologic exam of the abdomen. Views: 2 Views. Upright and supine views. COMPARISON: CR XR acute abdomen series [id number] 04/19/2024 5:43 PM FINDINGS: Gastrointestinal tract: There is mild distension of the stomach. No small bowel distension is appreciated. There is also mild air distension of the transverse colon. Moderate amount of stool is seen within the ascending colon and descending colons. Intraperitoneal space: Normal. No free air. Organs: Calcification seen within the right upper quadrant likely related to gallstones. Bones/joints: Unremarkable for age. XR/XR abdomen min 2V [id number] IMPRESSION: 1. Air distension involving the stomach and transverse colon possibly related to an ileus. Recommend clinical correlation. 2. Mild fecal stasis. 3. Cholelithiasis.
--- NOTE | 2024-06-08 07:37 | ED_ITS ---
HPI - Abdominal Pain 2 General: Chief Complaint: Abdominal Pain Stated Complaint: abd pain and bloating Time Seen by Provider: 06/08/24 07:30 History of Present Illness: 64-year-old male presents with some abdo magda distention and mild discomfort. Patient reports he has a history of cirrhosis but is noticed over the last couple weeks his belly just been more distended. He does have some occasional bowel movements, no nausea or vomiting. Associated Symptoms: Reports bloating and constipation; Denies chills and fever(s) Related Data Previous Rx's ?Medication ?Instructions ?Recorded glycerin (adult) 1 supp GA BID PRN constipati on #12 05/21/24 ea Allergies Allergy/AdvReac Type Severity Reaction Status Date / Time No Known Allergies Allergy Verified 05/21/24 16:54 Review of Systems 2 Const: Denies: fever(s) or chills Card: Denies: chest pain Resp: Denies: dyspnea or productive cough GI: Reports: abdominal pain, constipation and bloating : Reports: oliguria PFSH ED 2 PFSH: Social History Smoking and tobacco/nicotine status: never used tobacco/nicotine Physical Exam 2 Const: COMMON NORMALS: no acute distress and patient oriented x3 GENERAL APPEARANCE: frail appearing and appears older than stated age Resp: COMMON NORMALS: normal respiratory effort and No use of accessory muscles Cardio: COMMON NORMALS: regular rate and regular rhythm RATE: regular rate RHYTHM: regular rhythm GI: COMMON NORMALS: Soft to palpation INSPECTION: Yes abdominal distension PALPATION: Yes Soft to palpation, No Guarding due to palpation present (GI) and No Rigid due to palpation PERCUSSION: tympanic to percussion Extremity: COMMON NORMALS: normal to inspection and full ROM Neuro: COMMON NORMALS: patient oriented x3, moves all extremities and no sensory deficits noted Psych: COMMON NORMALS: mental status grossly normal and cooperative Skin: COMMON NORMALS: no rashes or lesions noted GENERAL SKIN EXAM: no rashes or lesions noted Course 2 Vital Signs: Vital signs: Vital Signs Temperature 98.2 F 06/08/24 07:22 Pulse Rate 99 06/08/24 07:22 Respiratory Rate 18 06/08/24 07:22 Blood Pressure 129/86 06/08/24 07:22 Pulse Oximetry 99 06/08/24 07:22 Oxygen Delivery Me thod Room Air 06/08/24 07:22 MDM - Abdominal Pain Medical Decision Making Patient diagnostic studies were ordered reviewed interpreted by me. Patient's labs show no significant abnormalities. Patient's ALT AST are all normal. Patient's x-ray shows some mild air distention of the stomach and transverse colon. This could be related to ileus versus due to some constipation and fecal stasis. I did discussed x-ray findings with patient. We discussed and he was offered a CT however at this time he felt like it was more constipation issues as it has been going on for couple weeks and is having some occasional bowel movements. We discussed constipation outpatient treatment and recommended he start MiraLAX couple times daily with plenty of fluids and he can continue to use glycerin suppository. He will return in a couple days if his symptoms is not improving. Patient was stable and discharged home Lab Data 06/08/24 07:48 06/08/24 07:48 Labs/Radiology: Radiology Impressions Abdomen X-Ray 06/08/24 07:35 IMPRESSION: 1. Air distension involving the stomach and transverse colon possibly related to an ileus. Recommend clinical correlation. 2. Mild fecal stasis. 3. Cholelithiasis. Laboratory Results WBC 5.72 10^3/uL (3.29-11.43) 06/08/24 07:48 RBC 5.41 10^6/uL (3.85-5.65) 06/08/24 07:48 Hgb 11.80 g/dL (11.27-16.99) 06/08/24 07:48 Hct 38.5 % (37-53) 06/08/24 07:48 MCV 71.2 fl (82-101) L 06/08/24 07:48 MCH 21.8 pg (27-33) L 06/08/24 07:48 MCHC 30.6 g/dL (30-55) 06/08/24 07:48 RDW 18.9 % (12.1-15.1) H 06/08/24 07:48 Plt Count 131 10^3/cmm (157-399) L 06/08/24 07:48 MPV 9.1 fL (7.4-10.4) 06/08/24 07:48 Neut % (Auto) 82.9 % 06/08/24 07:48 Lymph % (Auto) 10.7 % 06/08/24 07:48 [place] % (Auto) 5.2 % 06/08/24 07:48 Eos % (Auto) 0.5 % 06/08/24 07:48 Baso % (Auto) 0.5 % 06/08/24 07:48 Neut # (Auto) 4.74 10^3/uL (1.8-7.7) 06/08/24 07:48 Lymph # (Auto) 0.6 10^3/uL (0.8-4.8) L 06/08/24 07:48 [place] # (Auto) 0.3 10^3/uL (0.2-0.9) 06/08/24 07:48 Eos # (Auto) 0.0 10^3/uL (0.0-0.8) 06/08/24 07:48 Baso # (Auto) 0.0 10^3/uL (0.0-0.1) 06/08/24 07:48 Nucleated RBC % (auto) 0 % 06/08/24 07:48 Nucleated RBCs # 0.0 /100WBC 06/08/24 07:48 Sodium 132 mmol/L (136-145) L 06/08/24 07:48 Potassium 4.4 mmol/L (3.5-5.1) 06/08/24 07:48 Chloride 98 mmol/L (98-107) 06/08/24 07:48 Carbon Dioxide 24 mmol/L (22-29) 06/08/24 07:48 Anion Gap 14.4 (5-19) 06/08/24 07:48 BUN 18 mg/dL (8-23) 06/08/24 07:48 Creatinine 1.0 mg/dL (0.7-1.2) 06/08/24 07:48 GFR Calculation 75.2 mL/min (90-130) L 06/08/24 07:48 Glucose 111 mg/dL (65-115) 06/08/24 07:48 Calculated Osmolality 277 mOsm/kg (285-295) L 06/08/24 07:48 Calcium 8.6 mg/dL (8.5-10.5) 06/08/24 07:48 Total Bilirubin 0.9 mg/dL (0.15-1.2) 06/08/24 07:48 AST 32 U/L (0-40) 06/08/24 07:48 ALT 20 U/L (0-41) 06/08/24 07:48 Alkaline Phosphatase 70 U/L (40-130) 06/08/24 07:48 Total Protein 7.7 g/dL (6.6-8.7) 06/08/24 07:48 Albumin 2.7 g/dL (3.5-5.2) L 06/08/24 07:48 Globulin 5.0 g/dL (1.3-4.6) H 06/08/24 07:48 Lipase 23 U/L (13-60) 06/08/24 07:48 All radiology interpretation(s) finalized by discharge Discharge Plan Discharge Patient Disposition: Home Clinical Impression: Constipation Condition: Stable Prescriptions: No Action glycerin (adult) Suppository 1 supp GA BID PRN (Reason: constipation) Qty: 12 0RF Discharge Orders: Discharge ED (Routine); Ordered 06/08/24 Ordered By: Jermaine Snider Discharge Diet: Usual diet Discharge Activity: Resume usual activity Patient Instructions: Constipation - Adult, Polyethylene Glycol 3350 (By mouth) (Miralax, Healthylax..., Opioid Safety, Pain Management Activity Restrictions/Additional Instructions: Please start MiraLAX 3-4 times daily as directed on package until soft daily stool then as needed. Please follow-up with your primary care provider return to the ER over the next couple days if your symptoms worsen or if you have any other concerns. Please be sure you are ambulating and activities this will help you have a normal bowel movement along with plenty of fluids Print Language: Yi Coding Level of Care Code ED Upsetting Machine Operator for Tessie Kearney
[2024-06-08 07:52] LABS: Basophils % 0.5 %; Eosinophils % 0.5 %; Hematocrit 38.5 % (37-53); Lymphocytes # 0.6 10^3/uL (0.8-4.8); Lymphocytes % 10.7 %; Mean Corpuscular HGB Conc 30.6 g/dL (30-55); Mean Corpuscular Hemoglobin 21.8 pg (27-33); Mean Corpuscular Volume 71.2 fl (82-101); Mean Platelet Volume 9.1 fL (7.4-10.4); Monocytes # 0.3 10^3/uL (0.2-0.9); Monocytes % 5.2 %; Neutrophils # 4.74 10^3/uL (1.8-7.7); Neutrophils % 82.9 %; Nucleated Red Blood Cells % 0 %; Platelet Count 131 10^3/cmm (157-399); Red Blood Count 5.41 10^6/uL (3.85-5.65); Red Cell Distribution Width 18.9 % (12.1-15.1); White Blood Count 5.72 10^3/uL (3.29-11.43)
[2024-06-08 08:15] LABS: Alanine Aminotransferase 20 U/L (0-41); Albumin Level 2.7 g/dL (3.5-5.2); Alkaline Phosphatase 70 U/L (40-130); Aspartate Amino Transferase 32 U/L (0-40); Blood Urea Nitrogen 18 mg/dL (8-23); Calcium 8.6 mg/dL (8.5-10.5); Carbon Dioxide 24 mmol/L (22-29); Chloride 98 mmol/L (98-107); Creatinine Clr Calc Pharmacy 70.5909; Glomerular Filtration Rate 75.2 mL/min (90-130); Glucose 111 mg/dL (65-115); Lipase 23 U/L (13-60); Osmolality Calculated 277 mOsm/kg (285-295); Sodium 132 mmol/L (136-145); Total Bilirubin 0.9 mg/dL (0.15-1.2); Total Protein 7.7 g/dL (6.6-8.7)
[2024-06-08 08:26] LABS: Anion Gap 14.4 (5-19); Potassium 4.4 mmol/L (3.5-5.1)
[2024-06-08 08:49] VITALS: BP 130/80; PULSE 97; O2SAT 97
== END 2024-06-08 08:50 | disposition home or self-care (01) ==
PROVIDERS: Emergency Provider Student in an Organized Health Care Education/Training Program
DX: K59.00 Constipation, unspecified (principal)
CPT/HCPCS: 74019; 80053; 83690; 85025; 99284

== ENCOUNTER 2024-06-23 00:32 | Inpatient (IN) | payer SELFPAY ==
[2024-06-23] VITALS (99 sets, daily range): BP systolic 75–128; BP diastolic 48–75; PULSE 90–123; RESP 8–29; TEMP 36.3–37.8; O2SAT 90–100; BMI 22.1
--- NOTE | 2024-06-23 00:55 | CTR_ITS ---
PROCEDURE INFORMATION: Exam: CT Chest With Contrast; Diagnostic Exam date and time: 06/23/2024 1:28 AM Age: 64 years old Clinical indication: Bloating; EMS arrival for AMS and fever. Dried blood in mouth and distended abdomen. Patient intoxicated. History of esophageal varices, hep c, and cirrhosis. ; Additional info: Fever, abd and epigastric pain, bloody emesis TECHNIQUE: Imaging protocol: Diagnostic computed tomography of the chest with contrast. Radiation optimization: All CT scans at this facility use at least one of these dose optimization techniques: automated exposure control; mA and/or kV adjustment per patient size (includes targeted exams where dose is matched to clinical indication); or iterative reconstruction. Contrast material: OMNI 350; Contrast volume: 80 ml; Contrast route: INTRAVENOUS (IV); COMPARISON: CR XR acute abdomen series [id number] 04/19/2024 5:43 PM RADIATION DOSE METRICS: Total DLP (mGy-cm): 931.65 FINDINGS: Lungs: There are centrilobular emphysematous changes in the lung apices. Scattered calcified pulmonary granulomas. No consolidation. Bibasilar dependent atelectasis. Pleural spaces: Trace bilateral pleural effusions. Heart: Unremarkable. No cardiomegaly. No pericardial effusion. Coronary arteries: Coronary artery calcifications are present. Lymph nodes: Irregular mass with central lucency at the left neck base measuring 4.4 x 4.9 cm, likely necrotic lymphadenopathy. Vasculature: Aortic atherosclerotic disease is seen without evidence of aneurysm. Bones/joints: Unremarkable. No acute fracture. Soft tissues: Unremarkable. COMMENTS: The presence of pulmonary emphysema on CT is an independent risk factor for lung cancer. In the absence of a history or active diagnosis of lung cancer, it is recommended that this patient with emphysema be evaluated for enrollment in a low dose CT lung cancer screening program. PROCEDURE INFORMATION: Exam: CT Abdomen And Pelvis With Contrast Exam date and time: 06/23/2024 1:28 AM Age: 64 years old Clinical indication: Bloating; EMS arrival for AMS and fever. Dried blood in mouth and distended abdomen. Patient intoxicated. History of esophageal varices, hep c, and cirrhosis. ; Additional info: Fever, abd and epigastric pain, bloody emesis TECHNIQUE: Imaging protocol: Computed tomography of the abdomen and pelvis with contrast. Radiation optimization: All CT scans at this facility use at least one of these dose optimization techniques: automated exposure control; mA and/or kV adjustment per patient size (includes targeted exams where dose is matched to clinical indication); or iterative reconstruction. Contrast material: OMNI 350; Contrast volume: 80 ml; Contrast route: INTRAVENOUS (IV); COMPARISON: CT abdomen pelvis w con* [id number] 07/16/2023 8:15 PM RADIATION DOSE METRICS: Total DLP (mGy-cm): 931.65 FINDINGS: Liver: Cirrhotic liver morphology. Multiple hypoattenuating hepatic lesions in both lobes, largest in the dome of the right hepatic lobe measuring 3.7 x 5.4 cm. Gallbladder and biliary ducts: Multiple gallstones are present in an otherwise normal-appearing gallbladder. No evidence of biliary obstruction. Pancreas: Normal. No ductal dilation. Spleen: Moderate splenomegaly, decreased from prior. Adrenal glands: Normal. No mass. Kidneys and ureters: Normal. No hydronephrosis. Stomach and bowel: Unremarkable. No obstruction. No mucosal thickening. Appendix: No evidence of appendicitis. Intraperitoneal space: Persistent extensive portosystemic collaterals in the upper abdomen. New massive ascites. 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 Lymph nodes: New bulky gastrohepatic and confluent retroperitoneal lymphadenopathy consistent with metastatic disease. Urinary bladder: Unremarkable as visualized. Reproductive: Unremarkable as visualized. Bones/joints: Unremarkable. No acute fracture. Soft tissues: Unremarkable. CT/CT chest abdpel w/*[id number] IMPRESSION: 1. Irregular mass with central lucency at the left neck base measuring 4.4 x 4.9 cm, likely necrotic lymphadenopathy. Metastatic disease suspected. 2. Emphysema. IMPRESSION: 1. 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 2. Cirrhotic liver morphology. 3. Multiple hepatic masses highly suspicious for hepatocellular carcinoma. 4. Moderate splenomegaly, decreased from prior. 5. New bulky gastrohepatic and confluent retroperitoneal lymphadenopathy consistent with metastatic disease. 6. Persistent extensive portosystemic collaterals in the upper abdomen. 7. New massive ascites. 8. Cholecystolithiasis without evidence of cholecystitis or biliary obstruction. THIS REPORT CONTAINS FINDINGS THAT MAY BE CRITICAL TO PATIENT CARE. The findings were verbally communicated via telephone conference at 2:33 AM [employer] WINDOWS ENGINEER on 06/23/2024 with FADI GAVIN. The findings were acknowledged and understood.
--- NOTE | 2024-06-23 00:55 | CTR_ITS ---
PROCEDURE INFORMATION: Exam: CT Head Without Contrast Exam date and time: 06/23/2024 1:26 AM Age: 64 years old Clinical indication: Altered mental status/memory loss and fever; EMS arrival from home for AMS and fever. Patient intoxicated. TECHNIQUE: Imaging protocol: Computed tomography of the head without contrast. Radiation optimization: All CT scans at this facility use at least one of these dose optimization techniques: automated exposure control; mA and/or kV adjustment per patient size (includes targeted exams where dose is matched to clinical indication); or iterative reconstruction. COMPARISON: No relevant prior studies available. RADIATION DOSE METRICS: Total DLP (mGy-cm): 646.04 FINDINGS: Brain: No acute intracranial hemorrhage or mass effect. There is mild decreased attenuation in the periventricular white matter, likely from microvascular disease. No definite acute infarct by CT. MRI would be more sensitive/specific for detection, as clinically directed. Cerebral ventricles: Ventricle size is normal for age. Paranasal sinuses: Mild mucosal thickening in the left maxillary sinus. Included paranasal sinuses otherwise appear essentially clear. Mastoid air cells: No significant acute finding. Bones: No definite acute skull fracture. Soft tissues: No significant acute finding. Vasculature: Vascular calcifications in the internal carotid arteries. CT/CT head wo con* [id number] IMPRESSION: 1. No acute intracranial hemorrhage or mass effect. 2. Changes of microvascular disease. 3. No definite acute infarct by CT, see above. 4. Other findings discussed above.
--- NOTE | 2024-06-23 00:57 | ECG_ITS ---
[employer] [facility] Test Date: 2024-06-23 Pat Name: Ashish Forrest Department: Room: Gender: Male Oil Burner: : 1960 Requested By: Dashawn Aldana Order Number: [id number] Carol MD: Adi Guevara M.D. Measurements Intervals [place] Rate: 115 P: -17 OK: 143 QRS: 14 QRSD: 92 T: -18 QT: 316 QTc: 437 Interpretive Statements SINUS TACHYCARDIA POSSIBLE INFERIOR MYOCARDIAL INFARCTION , OF INDETERMINATE AGE [30 ms Q WAVE IN II/aVF] Compared to ECG 05/18/2023 18:53:37 Myocardial infarct finding now present Electronically Signed On 06-28-2024 18:18:25 ECHOCARDIOGRAPHER by Adi Guevara M.D. [id number]
[2024-06-23] MEDS: LACTATED RINGERS 2110.56 ML IV (01:12)
[2024-06-23 01:26] LABS: Basophils % 0.2 %; Hematocrit 46.1 % (37-53); Lymphocytes # 0.3 10^3/uL (0.8-4.8); Lymphocytes % 5.5 %; Mean Corpuscular HGB Conc 31.5 g/dL (30-55); Mean Corpuscular Hemoglobin 22.1 pg (27-33); Mean Corpuscular Volume 70.3 fl (82-101); Mean Platelet Volume 9.3 fL (7.4-10.4); Monocytes # 0.1 10^3/uL (0.2-0.9); Monocytes % 2.2 %; Neutrophils # 5.36 10^3/uL (1.8-7.7); Neutrophils % 91.9 %; Nucleated Red Blood Cells % 0 %; Platelet Count 185 10^3/cmm (157-399); Red Blood Count 6.56 10^6/uL (3.85-5.65); Red Cell Distribution Width 20.8 % (12.1-15.1); White Blood Count 5.83 10^3/uL (3.29-11.43)
--- NOTE | 2024-06-23 01:26 | P.HP_ITS ---
Providers/Chief Complaint 2 Chief Complaint: FEVER/AMS History of Present Illness Ashish Forrest is a 64 year old male Medications/Allergies Home Medications ?Medication ?Instructions ?Recorded ?Confirmed ?Last Taken ?Type glycerin (adult) 1 supp RI BID PRN constipati on #12 05/21/24 05/21/24 Unknown Rx ea Allergies Allergy/AdvReac Type Severity Reaction Status Date / Time No Known Allergies Allergy Verified 05/21/24 16:54 PFSH Acute 2 PFSH: Social History Smoking and tobacco/nicotine status: never used tobacco/nicotine Vitals/I&O/Wt Last Vital Signs Temp 100.1 F H 06/23/24 00:35 Pulse 120 H 06/23/24 00:35 Resp 24 H 06/23/24 00:35 BP 117/65 06/23/24 00:35 Pulse Ox 96 06/23/24 00:35 O2 Del Method Room Air 06/23/24 00:35 06/22/24 06/22/24 06/23/24 14:59 22:59 06:59 Intake Total 1000 / 1000 Balance 1000 / 1000 Weight last 48 hrs Weight 70.352 kg Data 06/23/24 01:18 06/23/24 01:10 A&P PDMP PDMP Reviewed: Not Reviewed Coding Level of Care Code Acute Code for Tessie Kearney
[2024-06-23 01:40] LABS: INR 1.32 (0.8-1.2)
[2024-06-23] MEDS: iohexol 350 mg/mL 500 mL Btl (per mL) IV (01:42)
[2024-06-23 01:44] LABS: Ammonia 27 umol/L (16-60)
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
[2024-06-23 02:01] LABS: Influenza A NEGATIVE (Negative); Influenza B NEGATIVE (Negative); Respiratory Syncytial Virus Ce NEGATIVE (Negative); SARS-CoV-2 PCR NEGATIVE (Negative)
[2024-06-23 02:03] LABS: Alanine Aminotransferase 28 U/L (0-41); Albumin Level 2.9 g/dL (3.5-5.2); Alcohol Level < 10 mg/dL (0-10); Alkaline Phosphatase 90 U/L (40-130); Aspartate Amino Transferase 48 U/L (0-40); Blood Urea Nitrogen 33 mg/dL (8-23); C Reactive Protein 27.2 mg/L (0.0-4.9); Calcium 10.7 mg/dL (8.5-10.5); Carbon Dioxide 23 mmol/L (22-29); Chloride 94 mmol/L (98-107); Creatinine Clr Calc Pharmacy 51.1197; Globulin 5.7 g/dL (1.3-4.6); Glucose 67 mg/dL (65-115); Lipase 34 U/L (13-60); Magnesium 2.1 mg/dL (1.7-2.3); NT Pro B Type Natriuretic Pept 607 pg/mL (0-125); Osmolality Calculated 274 mOsm/kg (285-295); Sodium 129 mmol/L (136-145); Total Protein 8.6 g/dL (6.6-8.7)
[2024-06-23 02:04] LABS: Lactic Sepsis W/Reflex 5.5 mmol/L (0.5-2.2); Reflex Lactate Order REFLEX LACTIC ORDERD
[2024-06-23 02:23] LABS: ABG PCO2 30.1 mmHg (35-45); ABG PH Result 7.48 (7.35-7.45); Arterial Blood Gas Hematocrit 37.3 % (42-52); Base Excess ABG -0.3 mmol/L (-2.0-2.0); Blood Gas Sample Site Brachial, right; Blood Gas Sample Type Arterial; Carboxyhemoglobin 1.5 %THgb (0.4-20.1); HCO3 ABG 22.5 mmol/L (22-26); HGB O2 Sat 91.6 % (95-100); Oxygen Device ROOM AIR; Total Hemoglobin 12.2 g/dL (14-18)
[2024-06-23 03:08] LABS: Bilirubin Urine 1+ (Negative); Blood Urine Negative (Negative); Glucose Urine UA Negative (Normal); Ketones Urine Trace (Negative); Leukocyte Esterase Urine Trace (Negative); Nitrate Urine Negative (Negative); Protein Urine Trace (Negative); Specific Gravity, Urine 1.029 (1.005-1.030); Urine Appearance Clear (CLEAR)
[2024-06-23] MEDS: piperacillin-tazobactam 4.5 GM in sodium chloride 0.9% (plus) 50 ML IV (03:24)
[2024-06-23] MEDS: pantoprazole 40 mg SDV 80 MG IVP (03:25)
[2024-06-23 03:35] LABS: Add Urine Culture? No; Add Urine Microscopic? YES; Bacteria Urine TRACE /hpf; Hyaline Casts Urine 25-40 /lpf; Mucus Urine 1+ /hpf; RBC Urine 0-4 /hpf (0-2); Squamous Epithelial Cell Urine 0-4 /hpf (0-5); Urine Color Orange (Yellow); WBC Urine 0-4 /hpf (0-5)
[2024-06-23] MEDS: morphine 4 mg/mL SDV 1 mL IVP (03:39)
[2024-06-23] MEDS: ondansetron 2 mg/ML SDV 2 mL 4 MG IVP (03:39)
--- NOTE | 2024-06-23 03:40 | P.HP_ITS ---
Providers/Chief Complaint 2 Chief Complaint: FEVER/AMS History of Present Illness Ashish Forrest is a 64 year old male with history of polysubstance abuse, hepatitis C related liver cirrhosis, portal hypertension, gastric varices, presented to the hospital for worsening abdominal pain. Patient is stating that he lives with a friend, he presented to the hospital for worsening abdominal pain, he had dried blood in his mouth and around the lips, he is not sure if he had blood in vomiting at home, he is endorsing to using marijuana and methamphetamine, he smokes half a pack a day. Patient is stating that he is not drinking alcohol. He is endorsing losing weight. He has been sick for quite some time, got worse in last 2 to 3 days. Workup in the ER consistent with tachycardia tachypnea fever, INR 1.3, he has hyponatremia, hyperkalemia, NIURKA, high lactic acid, sepsis, source of fever seems to be SBP Patient was given octreotide, albumin fluids and antibiotics in the ER CT chest abdomen pelvis consistent with portal vein thrombosis, liver cancer with metastatic lesions, significant ascites and signs of portal hypertension Review of Systems 2 Const: Reports: fever(s), chills, body aches, change in weight, fatigue, malaise, night sweats, diaphoresis and change in sleep pattern Eyes: Denies: change in vision ENMT: Denies: throat pain Card: Reports: swelling of feet/ankles and dyspnea on exertion Resp: Reports: dyspnea GI: Reports: abdominal pain, nausea and vomiting : Denies: flank pain Musc: Reports: back pain Skin/Breast: Reports: rash Neuro: Reports: headache(s) Psych: Reports: anxiety Medications/Allergies Home Medications ?Medication ?Instructions ?Recorded ?Confirmed ?Last Taken ?Type glycerin (adult) 1 supp NM BID PRN constipati on #12 05/21/24 05/21/24 Unknown Rx ea Allergies Allergy/AdvReac Type Severity Reaction Status Date / Time No Known Allergies Allergy Verified 05/21/24 16:54 PFSH Acute 2 PFSH: Medical History COVID-19 Liver cirrhosis Hepatitis C Social History Smoking and tobacco/nicotine status: never used tobacco/nicotine Vitals/I&O/Wt Last Vital Signs Temp 100.1 F H 06/23/24 00:35 Pulse 120 H 06/23/24 02:30 Resp 22 H 06/23/24 02:30 BP 116/66 06/23/24 02:15 Pulse Ox 95 06/23/24 02:15 O2 Del Method Room Air 06/23/24 00:35 06/22/24 06/22/24 06/23/24 14:59 22:59 06:59 Intake Total 3110.56 / 3110.56 Balance 3110.56 / 3110.56 Weight last 48 hrs Weight 70.352 kg Physical Exam 2 Narrative: Patient has distended abdomen Signs of peritonitis present Tender to touch Signs of Admit to see Portal hypertension present present Dried blood in his mouth and around the lips Able to answer my questions Cachectic, malnourished Lower extremity ulcer chronic Paresthesia of lower extremities noted S1, S2 tachycardia Currently on room air Sarcopenia, malnourished Unkept appearance Needle track junior Laying supine Sepsis: Is patient septic: Yes Focused sepsis exam performed: Yes F ocused sepsis exam: Cap refill less than 3-second I do not appreciate any active skin mottling Mentation is fluctuant Tachycardia Saturating 95% on room air Urine outpu inadequate Weak peripheral pulses, no active cyanosis Date exam was performed: 06/23/24 Time exam was performed: 03:52 Data 06/23/24 01:18 06/23/24 01:10 Micro: Microbiology 06/23/24 01:18 Blood Culture - Preliminary Blood SPECIMEN COLLECTED 06/23/24 01:10 Blood Culture - Preliminary Blood SPECIMEN COLLECTED A&P Assessment and plan (1) Acute upper gastrointestinal bleeding: (2) Anemia in chronic illness: (3) Cirrhosis of liver: Qualifiers: Ascites presence: without ascites Hepatic cirrhosis type: alcoholic cirrhosis Qualified Code(s): K70.30 - Alcoholic cirrhosis of liver without ascites (4) Esophageal varices: (5) Portal hypertension: (6) Liver cancer: (7) Metastatic cancer to liver: (8) Ascites: (9) Portal vein thrombosis: (10) SBP (spontaneous bacterial peritonitis): (11) NIURKA (acute kidney injury): (12) Hyperkalemia: (13) Hyponatremia: (14) Sepsis: (15) Volume overload: (16) Polysubstance abuse: Plan Sepsis Criteria met with fever tachypnea tachycardia, high lactic acid Endorgan damage Received septic bolus, not a very good candidate related to anasarca and liver cirrhosis, it might cause more third spacing Administered antibiotics Zosyn in the ER, concern for SBP Start ceftriaxone 2 g daily Blood cultures taken, SBP: Start ceftriaxone octreotide and albumin Considering underlying concern for malignancy patient might not be a good candidate for paracentesis Hepatic cancer with metastatic lesion and portal vein thrombosis Review of records revealed hepatitis C related liver cirrhosis Portal hypertension, gastric varices, dried blood around the lips and in his mouth Not a candidate to be on anticoagulating agent Hemoglobin could be concentrated Start albumin and octreotide Guarded prognosis Ammonia level to be checked Start Lasix, lactulose NIURKA: Cannot give him spironolactone at this point, Lasix administered, Fish catheter placed Hyperkalemia: Given Kayexalate Will also give him insulin and D5 bolus Calcium gluconate Patient endorsing to taking marijuana and methamphetamine, requested drug screen Volume overload with hyponatremia: Carries guarded prognosis I will keep patient n.p.o. Start Protonix for concern of upper GI bleed DVT prophylaxis: SCDs Guarded prognosis Goals of care to be discussed in detail: Patient is stating that in case he is not able to make decision, his cousin should be notified who might make decisions for him he does not have any legal documents At this point patient is not sure about his CODE STATUS I have tried to call the daughter, this number is not in service PDMP PDMP Reviewed: Not Reviewed Attestations 2 Medical Necessity Statement*: More than 2 midnights anticipated Diagnoses Acute upper gastrointestinal bleeding K92.2 Anemia in chronic illness D63.8 Cirrhosis of liver K70.30 Ascites presence: without ascites Hepatic cirrhosis type: alcoholic cirrhosis Esophageal varices I85.00 Portal hypertension K76.6 Liver cancer C22.9 Metastatic cancer to liver C78.7 Ascites R18.8 Portal vein thrombosis I81 SBP (spontaneous bacterial peritonitis) K65.2 NIURKA (acute kidney injury) N17.9 Hyperkalemia E87.5 Hyponatremia E87.1 Sepsis A41.9 Volume overload E87.70 Polysubstance abuse F19.10
[2024-06-23] MEDS: sodium chloride 0.9% 1,000 ML 150 ML IV (03:42)
[2024-06-23] MEDS: octreotide 100 mcg/mL SDV 50 MCG IVP (03:43)
[2024-06-23] MEDS: albumin 37.5 GM/150 ML VIAL IV (04:04)
[2024-06-23 04:36] LABS: Amphetamines Screen Urine Negative (Negative); Barbiturates Screen Urine Negative (Negative); Benzodiazepines Screen Urine Positive (Negative); Cocaine Screen Urine Negative (Negative); Opiate Screen Urine Negative (Negative); PCP Screen Urine Negative (Negative); THC Screen Urine Negative (Negative)
[2024-06-23] MEDS: sodium polystyrene sulfonate 15 gm/60 mL Btl PO (04:49)
[2024-06-23] MEDS: insulin regular-human 100 units/1 mL 5 UNIT IVP (04:50)
[2024-06-23] MEDS: calcium gluconate 0.9% NaCL 1 GM/50 ML PREMIX IV (04:50)
[2024-06-23] MEDS: glucose 40% Gel 15 gm UDC PO (04:50)
[2024-06-23 04:52] LABS: C Reactive Protein 27.9 mg/L (0.0-4.9)
--- NOTE | 2024-06-23 05:30 | PC.NURSE ---
Wounds Patient's right leg red, edematous, with multiple ulcers. Picture sent to Dr. Hernandez through secure messaging. No new orders received.
[2024-06-23] MEDS: oxyCODONE 5 mg IR Tab/Cap PO ×3 (05:54→14:17)
--- NOTE | 2024-06-23 06:00 | PC.NURSE ---
Hypoglycemia Patient's blood glucose 45. Retest performed with result 35. D10 bolus administered per hypoglycemia protocol. Dr. Hernandez contacted and additional order received for 1 mg glucagon IM once. 15 minutes after bolus complete, patient's glucose increased to 124.
[2024-06-23] MEDS: dextrose 10% 250 ML 1000 ML IV (06:02)
[2024-06-23 06:05] LABS: Glucose Point of Care 46 mg/dL (70-110)
[2024-06-23 06:08] LABS: Glucose Point of Care 35 mg/dL (70-110)
[2024-06-23] MEDS: glucagon 1 mg/mL KIT 1 mL IM ×2 (06:13→21:29)
[2024-06-23 06:42] LABS: Glucose Point of Care 125 mg/dL (70-110)
[2024-06-23 07:07] LABS: Lactic Acid level (Lactate) 3.8 mmol/L (0.5-2.2)
[2024-06-23 07:12] LABS: Glucose Point of Care 112 mg/dL (70-110)
--- NOTE | 2024-06-23 08:15 | PC.PHAR ---
No other medications filled for this pt. Last antibiotic was Bactrim DS 03/11/24
[2024-06-23] MEDS: lactulose oral liq 20 gm/30 mL UDC PO (08:29)
[2024-06-23] MEDS: cefTRIAXone 2,000 MG in sodium chloride 0.9% (plus) 50 ML 100 MG IV (08:29)
[2024-06-23] MEDS: sennosides-docusate Tablet 1 TAB PO (08:29)
[2024-06-23] MEDS: pantoprazole 40 mg SDV IVP ×2 (08:30→18:03)
[2024-06-23] MEDS: octreotide 500 MCG in sodium chloride 0.9% (100 ml) 100 ML 10.1 MCG IV ×2 (08:30→18:02)
[2024-06-23] MEDS: FUROsemide 10 mg/mL SDV 10mL 40 MG IVP (08:31)
[2024-06-23 10:28] LABS: Hematocrit 38.5 % (37-53); Mean Corpuscular HGB Conc 31.7 g/dL (30-55); Mean Corpuscular Hemoglobin 22.8 pg (27-33); Mean Corpuscular Volume 71.8 fl (82-101); Mean Platelet Volume 8.8 fL (7.4-10.4); Platelet Count 82 10^3/cmm (157-399); Red Blood Count 5.36 10^6/uL (3.85-5.65); Red Cell Distribution Width 20.5 % (12.1-15.1); White Blood Count 3.41 10^3/uL (3.29-11.43)
--- NOTE | 2024-06-23 10:46 | US_ITS ---
WS: [id number] ULTRASOUND-GUIDED PARACENTESIS CLINICAL INFORMATION: ascites COMPARISON: None. Procedure Informed consent: The risks, benefits, and alternatives of the procedure were discussed with the patient. Verbal and written consent was obtained. Timeout: A timeout was performed to confirm the correct patient, procedure, and site. Preparation: A suitable skin site was identified. The patient was prepped and draped in usual sterile fashion. Lidocaine 1% was used for local anesthesia. Catheter: 4 Slovak One-step Yueh catheter. Side: RIGHT lower quadrant. Fluid Volume: 2000 ml Color: Yellow Complications: None. US/US paracentesis abd w [id number] IMPRESSION: Uncomplicated ultrasound-guided paracentesis. Removal of 2000 cc
[2024-06-23 10:50] LABS: Alanine Aminotransferase 21 U/L (0-41); Albumin Level 2.9 g/dL (3.5-5.2); Alkaline Phosphatase 58 U/L (40-130); Anion Gap 15.9 (5-19); Aspartate Amino Transferase 36 U/L (0-40); Blood Urea Nitrogen 32 mg/dL (8-23); Calcium 10.1 mg/dL (8.5-10.5); Carbon Dioxide 22 mmol/L (22-29); Chloride 96 mmol/L (98-107); Creatinine Clr Calc Pharmacy 48.9919; Globulin 4.2 g/dL (1.3-4.6); Glomerular Filtration Rate 47.1 mL/min (90-130); Glucose 81 mg/dL (65-115); Osmolality Calculated 274 mOsm/kg (285-295); Potassium 4.9 mmol/L (3.5-5.1); Sodium 129 mmol/L (136-145); Total Bilirubin 1.9 mg/dL (0.15-1.2); Total Protein 7.1 g/dL (6.6-8.7)
[2024-06-23] MEDS: albumin 25 G/100 ML BAG 60 G IV (10:53)
[2024-06-23] MEDS: sucralfate 1 gm/10 mL Oral Liq UDC PO (10:53)
[2024-06-23] MEDS: thiamine 100 mg/mL 2mL SDV IM (10:53)
[2024-06-23 11:12] LABS: Ammonia 24 umol/L (16-60)
[2024-06-23 11:30] LABS: Absolute Segmented Neutrophil 1.5 10/cmm (1.6-7.1); Band Neutrophils Absolute 1.6 10^3/cmm (0.0-1.2); Lymphocytes 9 %; Monocytes Absolute 0.1 10^3/cmm (0.1-0.6); Segmented Neutrophils 43 %; Total Cells Counted 100 (0-100)
[2024-06-23 11:33] LABS: Anisocytosis 2+; Eosinophils 0 %; Hypochromasia 2+; Lymphocytes Absolute 0.3 10^3/cmm (1.2-3.4); Microcytosis 2+; Platelet Estimate Decreased (Normal); Poikilocytosis 1+
--- NOTE | 2024-06-23 12:50 | PC.NURSE ---
contacted physician, order given to consult wound care for patients wound
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
[2024-06-23] MEDS: silvasorb gel 44.4 mL 1 APPLIC TOPICAL (14:45)
[2024-06-23] MEDS: LORazepam 2 mg/mL INJ 1 mL IVP (15:17)
[2024-06-23 15:46] LABS: HIV 1 & 2 Antibody Non-Reactive (Non-Reactiv); HIV 1 & 2 Antigen Non-Reactive (Non-Reactiv)
[2024-06-23 15:49] LABS: Hepatitis A Antibody IgM Non-Reactive (Nonreactive); Hepatitis B Core IgM Non-Reactive (Nonreactive); Hepatitis B Surface Antigen Non-Reactive (Nonreactive)
[2024-06-23] MEDS: albumin 50 G/200 ML BAG 60 G IV (15:52)
--- NOTE | 2024-06-23 15:59 | PC.NURSE ---
Paracentesis was performed on the patient. 1600 mls of fluid were obtained.
[2024-06-23 16:09] LABS: Body Fluid Polynuclear #Cells 0.014; Body Fluid WBC 152 /uL; Monocytes # Body Fluid 0.138
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
[2024-06-23 16:14] LABS: Apprearance, Body Fluid CLOUDY; Color, Body Fluid PALE YELLOW; PATH Referral YES
[2024-06-23 16:15] LABS: Fluid Laterality ASCITES
[2024-06-23 16:21] LABS: Cyto Order Verification Order Verified
[2024-06-23 16:38] LABS: Hepatitis C Virus Antibody Reactive (Nonreactive)
[2024-06-23 16:41] LABS: Albumin Body Fluid 0.6 g/dL; Cholesterol Body Fluid 24 mg/dL (0-200); Fluid Alkaline Phos. 12 IU/L; Total Protein Body Fluid 1.4 g/dL; Triglycerides Body Fluid 146 mg/dL (0-150); Uric Acid Body Fluid 9 mg/dL
[2024-06-23 17:16] LABS: Body Fluid Specific Gravity 1.015; LDH Body Fluid 53 U/L; pH Body Fluid 7.5
[2024-06-23 18:21] LABS: Hematocrit 31.5 % (37-53)
[2024-06-23 18:53] LABS: Glucose Point of Care 89 mg/dL (70-110)
[2024-06-23 19:57] LABS: Glucose Point of Care 88 mg/dL (70-110)
--- NOTE | 2024-06-23 21:00 | PC.NURSE ---
New Contact Kenton Puente present at patient bedside, states patient lives with him. Inquiry made regarding family contacts to which Kenton stated he did not have any updated phone numbers for Ruth or Danis Forrest. Kenton to attempt to go to Danis's home later to see if he could make contact. Update on critical patient status provided to Kenton and education provided regarding the need for a physician to speak with him or family about critical test results. Phone number for Kenton' brother provided:[phone]. Kenton then left unit prior to speaking with hospitalist.
[2024-06-23 22:58] LABS: Glucose Point of Care 89 mg/dL (70-110)
[2024-06-23 23:03] LABS: Glucose Point of Care 107 mg/dL (70-110)
--- NOTE | 2024-06-23 23:42 | PC.NURSE ---
Physician Communication Dr. Hernandez notified of patient's neurological changes, current blood sugar, inability to swallow PO medications, as well as albumin dose due at 1900 when additional albumin started at 1600 complete at 1900. Orders received to hold next albumin dose due and to administer 1 mg glucagon IM once. Furthermore, Dr. Hernandez notified of patient friend, Kenton Puente, being on unit and of the phone number at which to reach him (see previous note).
[2024-06-24] VITALS (93 sets, daily range): BP systolic 92–140; BP diastolic 53–78; PULSE 86–114; RESP 8–37; TEMP 36.2–36.8; O2SAT 90–100
[2024-06-24 00:54] LABS: Glucose Point of Care 101 mg/dL (70-110)
[2024-06-24] MEDS: albumin 25 G/100 ML BAG 60 G IV ×3 (03:41→18:07)
[2024-06-24 04:05] LABS: Basophils % 0.4 %; Hematocrit 35.5 % (37-53); Lymphocytes # 0.3 10^3/uL (0.8-4.8); Lymphocytes % 9.2 %; Mean Corpuscular HGB Conc 31.3 g/dL (30-55); Mean Corpuscular Hemoglobin 22.5 pg (27-33); Mean Platelet Volume 8.9 fL (7.4-10.4); Monocytes # 0.1 10^3/uL (0.2-0.9); Monocytes % 4.6 %; Neutrophils # 2.43 10^3/uL (1.8-7.7); Neutrophils % 85.4 %; Nucleated Red Blood Cells % 0 %; Platelet Count 60 10^3/cmm (157-399); Red Blood Count 4.93 10^6/uL (3.85-5.65); Red Cell Distribution Width 20.3 % (12.1-15.1); White Blood Count 2.84 10^3/uL (3.29-11.43)
[2024-06-24 04:24] LABS: Ammonia 23 umol/L (16-60); Lactic Sepsis W/Reflex 2.1 mmol/L (0.5-2.2)
[2024-06-24 04:29] LABS: Magnesium 1.8 mg/dL (1.7-2.3)
[2024-06-24 04:33] LABS: C Reactive Protein 103.7 mg/L (0.0-4.9); Creatine Phosphokinase 65 U/L (39-308); Phosphorus 4.3 mg/dL (2.5-4.5)
[2024-06-24 04:38] LABS: Alanine Aminotransferase 19 U/L (0-41); Albumin Level 3.3 g/dL (3.5-5.2); Alkaline Phosphatase 56 U/L (40-130); Anion Gap 15.5 (5-19); Aspartate Amino Transferase 37 U/L (0-40); Blood Urea Nitrogen 39 mg/dL (8-23); Calcium 10.2 mg/dL (8.5-10.5); Carbon Dioxide 25 mmol/L (22-29); Chloride 97 mmol/L (98-107); Creatinine Clr Calc Pharmacy 43.2281; Globulin 3.7 g/dL (1.3-4.6); Glomerular Filtration Rate 40.8 mL/min (90-130); Glucose 90 mg/dL (65-115); Osmolality Calculated 285 mOsm/kg (285-295); Potassium 4.5 mmol/L (3.5-5.1); Sodium 133 mmol/L (136-145); Total Bilirubin 1.8 mg/dL (0.15-1.2)
[2024-06-24 04:44] LABS: NT Pro B Type Natriuretic Pept 2123 pg/mL (0-125); Procalcitonin 20.79 ng/mL (0-0.5)
[2024-06-24] MEDS: octreotide 500 MCG in sodium chloride 0.9% (100 ml) 100 ML 10.1 MCG IV ×2 (04:51→14:07)
[2024-06-24 05:48] LABS: Reflex Lactate Order REFLEX LACTIC ORDERD
[2024-06-24 07:07] LABS: Lactic Acid level (Lactate) 1.8 mmol/L (0.5-2.2)
--- NOTE | 2024-06-24 07:50 | CT_ITS ---
WS: [id number] CT RIGHT LOWER EXTREMITY, TIB-FIB. HISTORY: swelling pain Technique: All CT scans at [facility] use at least one of these dose optimization techniques: automated exposure control; mA and/or kV adjustment per patient size (includes targeted exams where dose is matched to clinical indication); or iterative reconstruction. DLP: 766.26 mGy.cm COMPARISON: None available. Motion artifact. There is extensive subcutaneous edema throughout the RIGHT lower extremity. Greater distribution of edema towards the ankle which is probably dependent. Edema continues into the ankle and foot. There is no well- formed separate collection. Muscle bundles are difficult to differentiate b ecause of the interspersed edema. Post surgical clips in the soft tissues probably likely related to vein harvesting. No acute fractures are identified. CT/CT lower leg RT wo con* [id number] IMPRESSION: 1. No RIGHT lower extremity fracture. 2. Marked diffuse soft tissue edema. Cannot exclude cellulitis on this appeara nce. There is no focal well-formed collection.
--- NOTE | 2024-06-24 08:11 | PHA.VACGOAL ---
Vancomycin Goal - Goal Vancomycin Goal:: 15-20 mg/L Vancomycin Indication:: Other - Therapy Current therapy:: Other Antibiotic (CEFTRIAXONE) Day of therpy:: Day []of [] . Actual body weight (kg): 144 lb 6.444 oz - Data Labs: WBC 2.84 10^3/uL (3.29-11.43) L 06/24/24 03:34 RBC 4.93 10^6/uL (3.85-5.65) 06/24/24 03:34 Hgb 11.10 g/dL (11.27-16.99) L 06/24/24 03:34 Hct 35.5 % (37-53) L 06/24/24 03:34 MCV 72.0 fl (82-101) L 06/24/24 03:34 MCH 22.5 pg (27-33) L 06/24/24 03:34 MCHC 31.3 g/dL (30-55) 06/24/24 03:34 RDW 20.3 % (12.1-15.1) H 06/24/24 03:34 Sodium 133 mmol/L (136-145) L 06/24/24 03:34 Potassium 4.5 mmol/L (3.5-5.1) 06/24/24 03:34 Chloride 97 mmol/L (98-107) L 06/24/24 03:34 Carbon Dioxide 25 mmol/L (22-29) 06/24/24 03:34 Anion Gap 15.5 (5-19) 06/24/24 03:34 BUN 39 mg/dL (8-23) H 06/24/24 03:34 Creatinine 1.7 mg/dL (0.7-1.2) H 06/24/24 03:34 GFR Calculation 40.8 mL/min (90-130) L 06/24/24 03:34 Last dialysis session:: N/A Treatment plan:: new consult Regimen:: LOADING DOSE OF 2000 MG ONCE MAINTENANCE DOSE OF 500 MG Q12H Follow up:: WILL CONTINUE TO MONITOR AND FOLLOW UP DAILY
[2024-06-24] MEDS: FUROsemide 10 mg/mL SDV 10mL 40 MG IVP (08:48)
[2024-06-24] MEDS: midodrine 5 mg TABLET 10 MG PO ×3 (08:48→20:37)
[2024-06-24] MEDS: sennosides-docusate Tablet 1 TAB PO (08:48)
[2024-06-24] MEDS: thiamine 100 mg Tablet PO (08:48)
[2024-06-24] MEDS: folic acid 1 mg Tablet PO (08:48)
[2024-06-24] MEDS: pantoprazole 40 mg SDV IVP ×2 (08:48→17:32)
[2024-06-24] MEDS: multivitamin therapeutic Tablet 1 TAB PO (08:48)
[2024-06-24] MEDS: cefTRIAXone 2,000 MG in sodium chloride 0.9% (plus) 50 ML 100 MG IV (08:49)
[2024-06-24] MEDS: vancomycin 2,000 MG/400 ML PIGGYBACK 200 MG IV (08:49)
[2024-06-24] MEDS: silvasorb gel 44.4 mL 1 APPLIC TOPICAL (08:50)
[2024-06-24] MEDS: sucralfate 1 gm/10 mL Oral Liq UDC PO ×2 (12:04→16:58)
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
[2024-06-24] MEDS: vancomycin 500 MG in sodium chloride 0.9% (plus) 100 ML 200 MG IV (20:39)
[2024-06-25] VITALS (50 sets, daily range): BP systolic 94–144; BP diastolic 63–89; PULSE 77–124; RESP 9–34; TEMP 36.1–36.7; O2SAT 88–100; BMI 20.8
[2024-06-25] MEDS: octreotide 500 MCG in sodium chloride 0.9% (100 ml) 100 ML 10.1 MCG IV ×2 (01:15→12:40)
[2024-06-25] MEDS: midodrine 5 mg TABLET 10 MG PO ×4 (03:45→20:30)
[2024-06-25] MEDS: albumin 25 G/100 ML BAG 60 G IV ×3 (03:45→20:30)
[2024-06-25 04:05] LABS: Hematocrit 34.7 % (37-53); Lymphocytes # 0.4 10^3/uL (0.8-4.8); Lymphocytes % 10.8 %; Mean Corpuscular HGB Conc 31.1 g/dL (30-55); Mean Corpuscular Hemoglobin 22.2 pg (27-33); Mean Corpuscular Volume 71.3 fl (82-101); Mean Platelet Volume 9.7 fL (7.4-10.4); Monocytes # 0.2 10^3/uL (0.2-0.9); Monocytes % 5.6 %; Neutrophils # 2.68 10^3/uL (1.8-7.7); Nucleated Red Blood Cells % 0 %; Platelet Count 67 10^3/cmm (157-399); Red Blood Count 4.87 10^6/uL (3.85-5.65); Red Cell Distribution Width 19.9 % (12.1-15.1); White Blood Count 3.23 10^3/uL (3.29-11.43)
[2024-06-25 04:23] LABS: INR 1.55 (0.8-1.2)
[2024-06-25 04:28] LABS: Alanine Aminotransferase 20 U/L (0-41); Albumin Level 3.5 g/dL (3.5-5.2); Alkaline Phosphatase 59 U/L (40-130); Anion Gap 17.4 (5-19); Aspartate Amino Transferase 37 U/L (0-40); Blood Urea Nitrogen 40 mg/dL (8-23); Calcium 9.9 mg/dL (8.5-10.5); Carbon Dioxide 24 mmol/L (22-29); Chloride 99 mmol/L (98-107); Creatinine Clr Calc Pharmacy 55.7171; Globulin 3.6 g/dL (1.3-4.6); Glomerular Filtration Rate 55.6 mL/min (90-130); Glucose 109 mg/dL (65-115); Osmolality Calculated 294 mOsm/kg (285-295); Potassium 3.4 mmol/L (3.5-5.1); Sodium 137 mmol/L (136-145); Total Bilirubin 1.7 mg/dL (0.15-1.2); Total Protein 7.1 g/dL (6.6-8.7)
[2024-06-25 04:30] LABS: C Reactive Protein 102.2 mg/L (0.0-4.9); Phosphorus 3.5 mg/dL (2.5-4.5)
[2024-06-25 04:31] LABS: Ammonia 27 umol/L (16-60)
[2024-06-25 04:37] LABS: NT Pro B Type Natriuretic Pept 2263 pg/mL (0-125); Procalcitonin 12.43 ng/mL (0-0.5)
[2024-06-25 04:48] LABS: Creatine Phosphokinase 27 U/L (39-308); Ferritin 272 ng/mL (30-400)
[2024-06-25] MEDS: sucralfate 1 gm/10 mL Oral Liq UDC PO ×4 (06:26→22:52)
[2024-06-25] MEDS: vancomycin 500 MG in sodium chloride 0.9% (plus) 100 ML 200 MG IV ×2 (08:08→20:30)
[2024-06-25] MEDS: cefTRIAXone 2,000 MG in sodium chloride 0.9% (plus) 50 ML 100 MG IV (08:10)
[2024-06-25] MEDS: pantoprazole 40 mg SDV IVP ×2 (08:10→17:24)
[2024-06-25] MEDS: thiamine 100 mg Tablet PO (08:11)
[2024-06-25] MEDS: silvasorb gel 44.4 mL 1 APPLIC TOPICAL (08:11)
[2024-06-25] MEDS: folic acid 1 mg Tablet PO (08:11)
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
[2024-06-25] MEDS: collagenase oint 30 gm 1 APPLIC TOPICAL (14:53)
[2024-06-25] MEDS: lactulose oral liq 20 gm/30 mL UDC PO (14:53)
[2024-06-25] MEDS: thiamine 100 mg/mL 2mL SDV 200 MG IVP ×2 (15:17→22:53)
[2024-06-26] VITALS (45 sets, daily range): BP systolic 104–150; BP diastolic 61–94; PULSE 66–120; RESP 12–31; TEMP 36.2–36.4; O2SAT 91–100
[2024-06-26] MEDS: midodrine 5 mg TABLET 10 MG PO ×4 (03:26→20:17)
[2024-06-26] MEDS: albumin 25 G/100 ML BAG 60 G IV ×2 (03:27→11:57)
[2024-06-26 03:52] LABS: Basophils % 0.3 %; Hematocrit 33.5 % (37-53); Lymphocytes # 0.4 10^3/uL (0.8-4.8); Lymphocytes % 11.3 %; Mean Corpuscular HGB Conc 30.7 g/dL (30-55); Mean Corpuscular Hemoglobin 22.2 pg (27-33); Mean Platelet Volume 9.7 fL (7.4-10.4); Monocytes # 0.2 10^3/uL (0.2-0.9); Monocytes % 6.1 %; Neutrophils # 2.54 10^3/uL (1.8-7.7); Nucleated Red Blood Cells % 0 %; Platelet Count 65 10^3/cmm (157-399); Red Blood Count 4.65 10^6/uL (3.85-5.65); Red Cell Distribution Width 20.1 % (12.1-15.1)
[2024-06-26 04:17] LABS: Creatine Phosphokinase 22 U/L (39-308); Ferritin 181 ng/mL (30-400)
[2024-06-26 04:20] LABS: Alanine Aminotransferase 17 U/L (0-41); Albumin Level 3.8 g/dL (3.5-5.2); Alkaline Phosphatase 58 U/L (40-130); Anion Gap 15.2 (5-19); Aspartate Amino Transferase 31 U/L (0-40); Blood Urea Nitrogen 30 mg/dL (8-23); Calcium 10.2 mg/dL (8.5-10.5); Carbon Dioxide 27 mmol/L (22-29); Chloride 102 mmol/L (98-107); Creatinine Clr Calc Pharmacy 79.7765; Globulin 3.1 g/dL (1.3-4.6); Glucose 115 mg/dL (65-115); Osmolality Calculated 299 mOsm/kg (285-295); Potassium 3.2 mmol/L (3.5-5.1); Sodium 141 mmol/L (136-145); Total Bilirubin 1.6 mg/dL (0.15-1.2); Total Protein 6.9 g/dL (6.6-8.7)
[2024-06-26 04:21] LABS: Ammonia 58 umol/L (16-60); C Reactive Protein 56.9 mg/L (0.0-4.9); Lactate (Lactic Acid level) 2.1 mmol/L (0.5-2.2)
[2024-06-26 04:43] LABS: Procalcitonin 4.37 ng/mL (0-0.5)
[2024-06-26 05:32] LABS: NT Pro B Type Natriuretic Pept 3195 pg/mL (0-125)
[2024-06-26] MEDS: thiamine 100 mg/mL 2mL SDV 200 MG IVP ×3 (06:31→21:38)
[2024-06-26] MEDS: sucralfate 1 gm/10 mL Oral Liq UDC PO ×4 (07:02→21:38)
[2024-06-26 08:04] LABS: Vancomycin Trough 7.6 ug/mL (10-15)
[2024-06-26] MEDS: sennosides-docusate Tablet 1 TAB PO (09:47)
[2024-06-26] MEDS: multivitamin therapeutic Tablet 1 TAB PO (09:47)
[2024-06-26] MEDS: lactulose oral liq 20 gm/30 mL UDC PO (09:47)
[2024-06-26] MEDS: folic acid 1 mg Tablet PO (09:47)
[2024-06-26] MEDS: cefTRIAXone 2,000 MG in sodium chloride 0.9% (plus) 50 ML 100 MG IV (09:48)
[2024-06-26] MEDS: pantoprazole 40 mg SDV IVP ×2 (09:55→18:07)
[2024-06-26] MEDS: collagenase oint 30 gm 1 APPLIC TOPICAL (09:59)
[2024-06-26] MEDS: silvasorb gel 44.4 mL 1 APPLIC TOPICAL (09:59)
[2024-06-26] MEDS: VANCOMYCIN ADD-Vantage 750 MG in 0.9% NaCl ADD-Vantage 250 ML 250 MG IV ×2 (10:15→21:38)
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
[2024-06-26] MEDS: lidocaine 1% 5 ML in potassium chloride premix 100 ML 26.25 ML IV (14:23)
[2024-06-26] MEDS: FUROsemide 40 mg Tablet PO (14:23)
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
[2024-06-26 16:53] LABS: HEP C RNA Viral Load Quant 230000 IU/mL (NOT DETECTED); HEP C RNA Viral Load Quant 5.36 Log IU/mL (NOT DETECTED)
[2024-06-26 19:34] LABS: Amylase, Peritoneal Fluid <10 U/L
--- NOTE | 2024-06-26 20:45 | PC.NURSE ---
Transferred via wheelchair to room 250 bed 2, nurse Jo received report from day shift prior to call this nurse with any questions. Patient vitals stable upon transfer. denies needs at this time.
[2024-06-27] VITALS (8 sets, daily range): BP systolic 114–145; BP diastolic 71–85; PULSE 72–87; RESP 15–17; TEMP 36.3–36.8; O2SAT 94–98
[2024-06-27] MEDS: midodrine 5 mg TABLET 10 MG PO ×4 (02:34→21:55)
[2024-06-27 05:43] LABS: Basophils % 0.6 %; Hematocrit 37.8 % (37-53); Lymphocytes # 0.4 10^3/uL (0.8-4.8); Lymphocytes % 11.1 %; Mean Corpuscular Hemoglobin 22.7 pg (27-33); Mean Corpuscular Volume 73.3 fl (82-101); Mean Platelet Volume 9.5 fL (7.4-10.4); Monocytes # 0.3 10^3/uL (0.2-0.9); Monocytes % 8.4 %; Neutrophils # 2.57 10^3/uL (1.8-7.7); Neutrophils % 79.6 %; Nucleated Red Blood Cells % 0 %; Platelet Count 75 10^3/cmm (157-399); Red Blood Count 5.16 10^6/uL (3.85-5.65); Red Cell Distribution Width 20.5 % (12.1-15.1); White Blood Count 3.23 10^3/uL (3.29-11.43)
[2024-06-27 06:12] LABS: Alanine Aminotransferase 19 U/L (0-41); Albumin Level 3.8 g/dL (3.5-5.2); Alkaline Phosphatase 58 U/L (40-130); Anion Gap 15.2 (5-19); Aspartate Amino Transferase 33 U/L (0-40); Blood Urea Nitrogen 23 mg/dL (8-23); Calcium 10.3 mg/dL (8.5-10.5); Carbon Dioxide 28 mmol/L (22-29); Chloride 103 mmol/L (98-107); Creatinine Clr Calc Pharmacy 85.4985; Globulin 3.3 g/dL (1.3-4.6); Glomerular Filtration Rate 113.5 mL/min (90-130); Glucose 102 mg/dL (65-115); Osmolality Calculated 300 mOsm/kg (285-295); Potassium 3.2 mmol/L (3.5-5.1); Sodium 143 mmol/L (136-145); Total Bilirubin 1.7 mg/dL (0.15-1.2); Total Protein 7.1 g/dL (6.6-8.7)
[2024-06-27 06:14] LABS: Lactate (Lactic Acid level) 2.6 mmol/L (0.5-2.2)
[2024-06-27] MEDS: sucralfate 1 gm/10 mL Oral Liq UDC PO ×4 (06:14→22:00)
[2024-06-27] MEDS: thiamine 100 mg/mL 2mL SDV 200 MG IVP ×3 (06:14→22:00)
[2024-06-27 06:18] LABS: Ferritin 155 ng/mL (30-400)
[2024-06-27] MEDS: FUROsemide 40 mg Tablet PO (09:11)
[2024-06-27] MEDS: multivitamin therapeutic Tablet 1 TAB PO (09:11)
[2024-06-27] MEDS: sennosides-docusate Tablet 1 TAB PO (09:11)
[2024-06-27] MEDS: lactulose oral liq 20 gm/30 mL UDC PO (09:11)
[2024-06-27] MEDS: folic acid 1 mg Tablet PO (09:11)
[2024-06-27] MEDS: pantoprazole 40 mg SDV IVP ×2 (09:12→18:32)
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
[2024-06-27] MEDS: collagenase oint 30 gm 1 APPLIC TOPICAL (11:02)
[2024-06-27] MEDS: VANCOMYCIN ADD-Vantage 750 MG in 0.9% NaCl ADD-Vantage 250 ML 250 MG IV (12:45)
[2024-06-27] MEDS: cefTRIAXone 2,000 mg SDV 2000 MG IVP (14:30)
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
[2024-06-27] MEDS: silvasorb gel 44.4 mL 1 APPLIC TOPICAL (15:58)
--- NOTE | 2024-06-27 16:38 | PC.OT ---
OT treatment session attempted with pt declining services; will attempt again at a later time.
[2024-06-27] MEDS: doxycycline 100 mg Tablet PO (18:32)
[2024-06-27] MEDS: ciprofloxacin 500 mg Tablet PO (21:55)
[2024-06-28] VITALS (8 sets, daily range): BP systolic 118–146; BP diastolic 70–79; PULSE 67–93; RESP 16–20; TEMP 36.4–36.9; O2SAT 94–99
[2024-06-28 03:08] LABS: Basophils % 0.4 %; Hematocrit 39.9 % (37-53); Lymphocytes # 0.4 10^3/uL (0.8-4.8); Lymphocytes % 15.4 %; Mean Corpuscular HGB Conc 29.8 g/dL (30-55); Mean Corpuscular Hemoglobin 21.8 pg (27-33); Mean Corpuscular Volume 73.1 fl (82-101); Mean Platelet Volume 9.1 fL (7.4-10.4); Monocytes # 0.2 10^3/uL (0.2-0.9); Monocytes % 7.5 %; Neutrophils # 1.94 10^3/uL (1.8-7.7); Neutrophils % 76.3 %; Nucleated Red Blood Cells % 0 %; Platelet Count 64 10^3/cmm (157-399); Red Blood Count 5.46 10^6/uL (3.85-5.65); Red Cell Distribution Width 20.5 % (12.1-15.1); White Blood Count 2.54 10^3/uL (3.29-11.43)
[2024-06-28 03:29] LABS: Albumin Level 3.9 g/dL (3.5-5.2); Alkaline Phosphatase 82 U/L (40-130); Anion Gap 14.8 (5-19); Aspartate Amino Transferase 30 U/L (0-40); Blood Urea Nitrogen 21 mg/dL (8-23); Calcium 10.2 mg/dL (8.5-10.5); Carbon Dioxide 30 mmol/L (22-29); Chloride 100 mmol/L (98-107); Creatinine Clr Calc Pharmacy 74.8112; Globulin 3.7 g/dL (1.3-4.6); Glomerular Filtration Rate 97.3 mL/min (90-130); Glucose 100 mg/dL (65-115); Osmolality Calculated 297 mOsm/kg (285-295); Sodium 142 mmol/L (136-145); Total Bilirubin 1.5 mg/dL (0.15-1.2); Total Protein 7.6 g/dL (6.6-8.7)
[2024-06-28 03:34] LABS: Potassium 2.8 mmol/L (3.5-5.1)
[2024-06-28 03:40] LABS: Alanine Aminotransferase 20 U/L (0-41)
[2024-06-28] MEDS: sucralfate 1 gm/10 mL Oral Liq UDC PO ×4 (04:18→21:54)
[2024-06-28] MEDS: potassium chloride ER 20 mEq Tablet 40 MEQ PO (04:18)
[2024-06-28] MEDS: thiamine 100 mg/mL 2mL SDV 200 MG IVP ×3 (06:04→21:54)
[2024-06-28] MEDS: midodrine 5 mg TABLET 10 MG PO ×3 (06:04→21:45)
[2024-06-28] MEDS: lactulose oral liq 20 gm/30 mL UDC PO (10:34)
[2024-06-28] MEDS: multivitamin therapeutic Tablet 1 TAB PO (10:35)
[2024-06-28] MEDS: folic acid 1 mg Tablet PO (10:35)
[2024-06-28] MEDS: pantoprazole DR 40 mg Tablet PO ×2 (10:35→17:27)
[2024-06-28] MEDS: ciprofloxacin 500 mg Tablet PO ×2 (10:35→21:45)
[2024-06-28] MEDS: sennosides-docusate Tablet 1 TAB PO (10:35)
[2024-06-28] MEDS: doxycycline 100 mg Tablet PO ×2 (10:36→17:27)
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
[2024-06-28] MEDS: collagenase oint 30 gm 1 APPLIC TOPICAL (17:27)
[2024-06-28] MEDS: silvasorb gel 44.4 mL 1 APPLIC TOPICAL (17:32)
[2024-06-29] VITALS (8 sets, daily range): BP systolic 98–126; BP diastolic 57–79; PULSE 69–76; RESP 16–18; TEMP 36.3–36.7; O2SAT 94–97
[2024-06-29 04:21] LABS: Basophils % 0.4 %; Eosinophils % 0.4 %; Hematocrit 37.5 % (37-53); Lymphocytes # 0.5 10^3/uL (0.8-4.8); Lymphocytes % 16.9 %; Mean Corpuscular HGB Conc 30.7 g/dL (30-55); Mean Corpuscular Hemoglobin 22.8 pg (27-33); Mean Corpuscular Volume 74.3 fl (82-101); Mean Platelet Volume 9.7 fL (7.4-10.4); Monocytes # 0.3 10^3/uL (0.2-0.9); Monocytes % 10.2 %; Neutrophils % 71.3 %; Nucleated Red Blood Cells % 0 %; Platelet Count 68 10^3/cmm (157-399); Red Blood Count 5.05 10^6/uL (3.85-5.65); Red Cell Distribution Width 20.8 % (12.1-15.1); White Blood Count 2.66 10^3/uL (3.29-11.43)
[2024-06-29 04:44] LABS: Alanine Aminotransferase 19 U/L (0-41); Albumin Level 3.4 g/dL (3.5-5.2); Alkaline Phosphatase 65 U/L (40-130); Anion Gap 11.2 (5-19); Aspartate Amino Transferase 28 U/L (0-40); Blood Urea Nitrogen 22 mg/dL (8-23); Calcium 9.7 mg/dL (8.5-10.5); Carbon Dioxide 30 mmol/L (22-29); Chloride 100 mmol/L (98-107); Creatinine Clr Calc Pharmacy 86.9004; Globulin 3.1 g/dL (1.3-4.6); Glomerular Filtration Rate 135.6 mL/min (90-130); Glucose 92 mg/dL (65-115); Osmolality Calculated 289 mOsm/kg (285-295); Potassium 3.2 mmol/L (3.5-5.1); Sodium 138 mmol/L (136-145); Total Bilirubin 1.5 mg/dL (0.15-1.2); Total Protein 6.5 g/dL (6.6-8.7)
[2024-06-29] MEDS: sucralfate 1 gm/10 mL Oral Liq UDC PO ×4 (06:00→23:46)
[2024-06-29] MEDS: midodrine 5 mg TABLET 10 MG PO ×3 (06:00→23:46)
[2024-06-29] MEDS: thiamine 100 mg/mL 2mL SDV 200 MG IVP ×3 (06:00→23:46)
[2024-06-29] MEDS: folic acid 1 mg Tablet PO (08:31)
[2024-06-29] MEDS: pantoprazole DR 40 mg Tablet PO ×2 (08:31→17:13)
[2024-06-29] MEDS: ciprofloxacin 500 mg Tablet PO ×2 (08:31→20:27)
[2024-06-29] MEDS: collagenase oint 30 gm 1 APPLIC TOPICAL (08:31)
[2024-06-29] MEDS: lactulose oral liq 20 gm/30 mL UDC PO (08:31)
[2024-06-29] MEDS: sennosides-docusate Tablet 1 TAB PO (08:31)
[2024-06-29] MEDS: multivitamin therapeutic Tablet 1 TAB PO (08:31)
[2024-06-29] MEDS: doxycycline 100 mg Tablet PO ×2 (08:31→17:13)
[2024-06-29] MEDS: silvasorb gel 44.4 mL 1 APPLIC TOPICAL (08:32)
--- NOTE | 2024-06-29 09:09 | PC.SLP ---
medical coordinator pesticide use attempted to reassess thin liquid but patient refused
[2024-06-29] MEDS: potassium chloride ER 20 mEq Tablet 40 MEQ PO (09:36)
[2024-06-29] MEDS: FUROsemide 40 mg Tablet PO (09:36)
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
[2024-06-29] MEDS: mirtazapine 15 mg Tablet PO (20:27)
[2024-06-29] MEDS: morphine 4 mg/mL SDV 1 mL 2 MG IVP (20:46)
[2024-06-30] VITALS: BP 98/63; PULSE 84; RESP 15; TEMP 36.5; O2SAT 96
[2024-06-30 03:04] LABS: Basophils % 0.4 %; Hematocrit 38.4 % (37-53); Lymphocytes # 0.6 10^3/uL (0.8-4.8); Mean Corpuscular Hemoglobin 22.4 pg (27-33); Mean Corpuscular Volume 72.3 fl (82-101); Monocytes # 0.3 10^3/uL (0.2-0.9); Monocytes % 9.1 %; Neutrophils % 68.8 %; Nucleated Red Blood Cells % 0 %; Platelet Count 62 10^3/cmm (157-399); Red Blood Count 5.31 10^6/uL (3.85-5.65); Red Cell Distribution Width 20.6 % (12.1-15.1); White Blood Count 2.76 10^3/uL (3.29-11.43)
[2024-06-30 03:09] VITALS: BP 101/69; PULSE 88; RESP 14; TEMP 36.6; O2SAT 96
[2024-06-30 03:19] LABS: Alanine Aminotransferase 19 U/L (0-41); Albumin Level 3.4 g/dL (3.5-5.2); Alkaline Phosphatase 62 U/L (40-130); Anion Gap 13.4 (5-19); Aspartate Amino Transferase 28 U/L (0-40); Blood Urea Nitrogen 22 mg/dL (8-23); Calcium 9.7 mg/dL (8.5-10.5); Carbon Dioxide 27 mmol/L (22-29); Chloride 101 mmol/L (98-107); Creatinine Clr Calc Pharmacy 69.6983; Globulin 3.5 g/dL (1.3-4.6); Glomerular Filtration Rate 113.5 mL/min (90-130); Glucose 95 mg/dL (65-115); Osmolality Calculated 289 mOsm/kg (285-295); Potassium 3.4 mmol/L (3.5-5.1); Sodium 138 mmol/L (136-145); Total Bilirubin 1.6 mg/dL (0.15-1.2); Total Protein 6.9 g/dL (6.6-8.7)
[2024-06-30 03:21] LABS: Magnesium 1.6 mg/dL (1.7-2.3); Phosphorus 1.8 mg/dL (2.5-4.5)
[2024-06-30] MEDS: thiamine 100 mg/mL 2mL SDV 200 MG IVP (06:16)
[2024-06-30] MEDS: midodrine 5 mg TABLET 10 MG PO (06:16)
[2024-06-30] MEDS: sucralfate 1 gm/10 mL Oral Liq UDC PO ×4 (06:16→20:57)
[2024-06-30 07:15] VITALS: BP 121/73; PULSE 83; RESP 18; TEMP 36.5; O2SAT 97
[2024-06-30] MEDS: ciprofloxacin 500 mg Tablet PO ×2 (08:18→20:57)
[2024-06-30] MEDS: folic acid 1 mg Tablet PO (08:18)
[2024-06-30] MEDS: collagenase oint 30 gm 1 APPLIC TOPICAL (08:18)
[2024-06-30] MEDS: lactulose oral liq 20 gm/30 mL UDC PO (08:18)
[2024-06-30] MEDS: silvasorb gel 44.4 mL 1 APPLIC TOPICAL (08:18)
[2024-06-30] MEDS: doxycycline 100 mg Tablet PO ×2 (08:18→17:14)
[2024-06-30] MEDS: multivitamin therapeutic Tablet 1 TAB PO (08:18)
[2024-06-30] MEDS: pantoprazole DR 40 mg Tablet PO ×2 (08:18→17:14)
[2024-06-30] MEDS: sennosides-docusate Tablet 1 TAB PO (08:18)
[2024-06-30] MEDS: FUROsemide 40 mg Tablet PO (08:18)
[2024-06-30] MEDS: magnesium sulfate premix 1 GM/100 ML PIGGYBACK IV (09:28)
[2024-06-30] MEDS: potassium phosphate (mEq K) 40 MEQ in sodium chloride 0.9% (100 ml) 100 ML 27.25 MEQ IV (10:19)
[2024-06-30 11:11] VITALS: BP 155/81; PULSE 78; RESP 19; TEMP 36.4; O2SAT 100
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
--- NOTE | 2024-06-30 13:38 | US_ITS ---
WS: [id number] ULTRASOUND SOFT TISSUES LEFT supraclavicular region. HISTORY: LEFT NECK LYMPH NODE FOR BIOPSY,ASSES VASCULARITY COMPARISON: Chest CT 06/23/2024 TECHNIQUE: 2-D and color Doppler imaging is submitted. Large solid mass with areas of necrosis and variable echogenicity in the LEFT cervical region. This corresponds to the abnormality noted on a prior chest CT in the supraclavicular region. This is a very lobulated mass with increased vascularity. Mass measures 3.0 x 3.3 x 3.5 cm. There is significant vascularity present. There is an additional component which may be separate or a separate metastatic focus measuring 2.8 x 2.8 x 1.9 cm along the LEFT cervical chain. US/US soft tissue head neck [id number] IMPRESSION: Large bulky LEFT cervical chain lymph nodes. The largest 3.0 x 3.3 x 3.5 cm. Th ere is increased vascularity present. Biopsy can be attempted with avoidance of the vessels. Ultrasound-guided biopsy can be attempted.
--- NOTE | 2024-06-30 15:19 | PM.DCS ---
Discharge Providers Date of Admission: 06/23/24 03:59 Date of Discharge: July 01, 2024 Attending Provider at Admission: Bonnie Hernandez MD Attending Provider at Discharge: Reji Nunez MD Diagnoses at Discharge Discharge Diagnosis (1) Acute upper gastrointestinal bleeding: Status: Inactive (2) Anemia in chronic illness: Status: Inactive (3) Cirrhosis of liver: Status: Inactive Qualifiers: Ascites presence: without ascites Hepatic cirrhosis type: alcoholic cirrhosis Qualified Code(s): K70.30 - Alcoholic cirrhosis of liver without ascites (4) Esophageal varices: Status: Inactive (5) Portal hypertension: Status: Acute (6) Liver cancer: Status: Acute (7) Metastatic cancer to liver: Status: Acute (8) Ascites: Status: Acute (9) Portal vein thrombosis: Status: Acute (10) SBP (spontaneous bacterial peritonitis): Status: Resolved (11) NIURKA (acute kidney injury): Status: Resolved (12) Hyperkalemia: Status: Resolved (13) Hyponatremia: Status: Resolved (14) Sepsis: Status: Resolved (15) Volume overload: Status: Resolved (16) Polysubstance abuse: Status: Acute (17) Septic shock: Status: Resolved (18) Acute liver failure: Status: Acute (19) Protein calorie malnutrition: Status: Acute (20) Elevated lactic acid level: Status: Resolved (21) Cancer cachexia: Status: Acute (22) Severe protein-calorie malnutrition: Status: Acute (23) Physical deconditioning: Status: Acute Reason for Visit Reason for Visit: FEVER/AMS Hospital Course Hospital Course This is a 64-year-old male with a past medical history of hepatitis C associated liver cirrhosis, who presents [facility] for altered mental status For his altered mental status likely multifactorial from sepsis, septic shock, alcoholism, spontaneous bacterial peritonitis. Overall mentation improved with his prolonged hospitalization, on discharge she is alert oriented x 2, following all commands, discharged to long term facility for rehab For sepsis, septic shock likely multifactorial from spontaneous bacterial peritonitis, cellulitis, required ICU admission, albumin therapy, fluid therapy, midodrine overall clinically improved. Will be discharged on midodrine 5 mg every 8 hours, with a close follow-up with primary care provider as outpatient For his spontaneous bacterial peritonitis, his paracentesis results were a bit lackluster, blood cultures so far no growth, ascites cultures so far no growth, nonetheless was monitored on broad-spectrum antibiotic therapy, octreotide, albumin, overall his septic shock, sepsis, encephalopathy resolved. He patient was moved to medical floors, he will be discharged on ciprofloxacin for SBP prophylaxis as outpatient For his history of right lower extremity wounds, history of [place], requiring multiple skin grafts there was concerns with cellulitis, he was managed with IV antibiotics. Overall clinically improved, discharged to long term facility with wound care instructions, discharged on doxycycline Concern for liver cirrhosis with portal vein thrombosis -In addition concerns for hepatocellular carcinoma, with concerns for radiographic evidence of metastasis -Concerns for hepatitis C in the past, order HIV, hep panel CT/CT chest abdpel w/*[id number] IMPRESSION: 1. Irregular mass with central lucency at the left neck base measuring 4.4 x 4.9 cm, likely necrotic lymphadenopathy. Metastatic disease suspected. 2. Emphysema. IMPRESSION: 1. 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 2. Cirrhotic liver morphology. 3. Multiple hepatic masses highly suspicious for hepatocellular carcinoma. 4. Moderate splenomegaly, decreased from prior. 5. New bulky gastrohepatic and confluent retroperitoneal lymphadenopathy consistent with metastatic disease. 6. Persistent extensive portosystemic collaterals in the upper abdomen. 7. New massive ascites. 8. Cholecystolithiasis without evidence of cholecystitis or biliary obstruction. -Concerns for portal hypertension, gastric varices, dried blood around the lips and in his mouth -History of GI bleed in the past -Currently not a candidate anticoagulant therapy -Will be discharged with a close follow-up with gastroenterology in [place] -He is hep C was positive, PCR is pending, follow-up with gastroenterology in [place] for consideration of treatment -Discussed morbidity and mortality associate with his liver cirrhosis, liver failure, multiple areas of thrombosis, he voices understanding, all questions answered wants to pursue treatment through gastroenterology For his portal vein thrombosis, evidence of complete thrombosis of right and left portal vein, partial thrombosis of the main portal vein -Patient was not a candidate for anticoagulant therapy given concerns for GI bleed, history of history of esophageal varices requiring band ligation -Discharged with close follow-up with gastroenterology in [place] History of upper GI bleed, requiring transfer to [facility] in [place] back in April 2023 for esophageal varices according to family he had band ligation. Discharged with close follow-up with gastroenterology in [place] for consideration of EGD and further band ligation Concern for GI bleed during his hospitalization, no recurrent episodes of hematemesis, resolved Concerns for hepatocellular cancer, evidence of gastrohepatic and retroperitoneal lymphadenopathy, lymphadenopathy left neck base -CEA and CA 19 ordered and pending -I had extensive goals of care discussion of goals of care with patient, he would want to pursue treatment and evaluation -He has a biopsy of his left neck scheduled for 07/01/2024 as inpatient, follow-up with oncology for biopsy results -Discussed with patient given his poor performance status currently, his significant deconditioning, protein calorie malnutrition, poor nutrition. We have to optimize his clinical status, and his performance status, discharged to long term facility for rehab, follow-up with oncology as outpatient -Discussed morbidity and mortality associated with his malignancy, he voiced understanding, all questions answered, wants to pursue treatment There was a question about a history of alcoholism -Patient's family members report possible alcohol use -However patient adamantly denies any alcohol use for the last 2 to 3 years as he knows he has a history of liver cirrhosis Patient had significant protein calorie malnutrition, physical deconditioning, cancer cachexia, BMI 15.3 -Secondary to liver cirrhosis, liver failure, possible hepatocellular cancer -Patient will be discharged to long term facility for rehab According to patient's family, patient has been living on family's couches, at one point has been living in the [facility], patient does not have a home -Patient was discharged to long term facility Physical Exam Const: COMMON NORMALS: no acute distress and patient oriented x3 Resp: COMMON NORMALS: normal respiratory effort, No retractions, No use of accessory muscles and clear to auscultation bilaterally AUSCULTATION: clear to auscultation bilaterally Cardio: COMMON NORMALS: regular rate, regular rhythm, S1 normal heart sound present and S2 normal heart sound present RATE: regular rate RHYTHM: regular rhythm HEART SOUNDS: S1 normal heart sound present and S2 normal heart sound present GI: COMMON NORMALS: Normal to inspection, nondistended, normoactive bowel sounds present and non-tender Extremity: COMMON NORMALS: no pedal edema Neuro: COMMON NORMALS: patient oriented x3 Psych: COMMON NORMALS: mental status grossly normal Urinary Catheter Management: Fish: Cath Placed During This Visit: yes Reason for Continuing Indwelling Catheter: Other Urinary Catheter Date of Insertion: 06/23/24 Urinary Catheter Time of Insertion: 02:40 Discharge Data Studies Completed and Pending Completed Studies During Hospitalization Category Date Time Status CT chest abdpel w/*[id number] Stat Cat Scan 06/23/24 00:[address] head wo con* [id number] Stat Cat Scan 06/23/24 00:[address] lower leg RT wo con* [id number] Routine Cat Scan 06/24/24 07:50 Completed Cytology [PTH] Routine Pth 06/23/24 10:46 [place] [id number] Routine Ultrasound 06/24/24 16:38 Com[place]acent[place] w [id number] Routine Ultrasound 06/23/24 10:46 Completed US soft tissue head neck [id number] Routine Ultrasound 06/30/24 13:38 Completed Pending at discharge Category Date Time Status Complete Blood Count w/Auto AM LABS Lab 07/01/24 04:00 Ordered Complete Blood Count w/Auto AM LABS Lab 07/02/24 04:00 Ordered Complete Blood Count w/Auto AM LABS Lab 07/03/24 04:00 Ordered Comprehensive Metabolic Panel AM LABS Lab 07/01/24 04:00 Ordered Comprehensive Metabolic Panel AM LABS Lab 07/02/24 04:00 Ordered Comprehensive Metabolic Panel AM LABS Lab 07/03/24 04:00 Ordered Magnesium AM LABS Lab 07/01/24 04:00 Ordered Magnesium AM LABS Lab 07/02/24 04:00 Ordered Mycobacteria, Culture w/Fluor Routine Lab 06/23/24 15:30 Results Phosphorus AM LABS Lab 07/01/24 04:00 Ordered Phosphorus AM LABS Lab 07/02/24 04:00 Ordered Radiology Impressions Chest/Abdomen/Pelvis CT 06/23/24 00:55 IMPRESSION: 1. Irregular mass with central lucency at the left neck base measuring 4.4 x 4.9 cm, likely necrotic lymphadenopathy. Metastatic disease suspected. 2. Emphysema. IMPRESSION: 1. 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 2. Cirrhotic liver morphology. 3. Multiple hepatic masses highly suspicious for hepatocellular carcinoma. 4. Moderate splenomegaly, decreased from prior. 5. New bulky gastrohepatic and confluent retroperitoneal lymphadenopathy consistent with metastatic disease. 6. Persistent extensive portosystemic collaterals in the upper abdomen. 7. New massive ascites. 8. Cholecystolithiasis without evidence of cholecystitis or biliary obstruction. THIS REPORT CONTAINS FINDINGS THAT MAY BE CRITICAL TO PATIENT CARE. The findings were verbally communicated via telephone conference at 2:33 AM TOWEL WEAVER on 06/23/2024 with FADI GAVIN. The findings were acknowledged and understood. Head CT 06/23/24 00:55 IMPRESSION: 1. No acute intracranial hemorrhage or mass effect. 2. Changes of microvascular disease. 3. No definite acute infarct by CT, see above. 4. Other findings discussed above. Paracentesis Ultrasound 06/23/24 10:46 IMPRESSION: Uncomplicated ultrasound-guided paracentesis. Removal of [address] 06/24/24 07:50 IMPRESSION: 1. No RIGHT lower extremity fracture. 2. Marked diffuse soft tissue edema. Cannot exclude cellulitis on this appearance. There is no focal well-formed collection. Head/Neck Ultrasound 06/30/24 13:38 IMPRESSION: Large bulky LEFT cervical chain lymph nodes. The largest 3.0 x 3.3 x 3.5 cm. There is increased vascularity present. Biopsy can be attempted with avoidance of the vessels. Ultrasound-guided biopsy can be attempted. Laboratory Results WBC 2.76 10^3/uL (3.29-11.43) L 06/30/24 01:58 RBC 5.31 10^6/uL (3.85-5.65) 06/30/24 01:58 Hgb 11.90 g/dL (11.27-16.99) 06/30/24 01:58 Hct 38.4 % (37-53) 06/30/24 01:58 MCV 72.3 fl (82-101) L 06/30/24 01:58 MCH 22.4 pg (27-33) L 06/30/24 01:58 MCHC 31.0 g/dL (30-55) 06/30/24 01:58 RDW 20.6 % (12.1-15.1) H 06/30/24 01:58 Plt Count 62 10^3/cmm (157-399) L 06/30/24 01:58 MPV 10.0 fL (7.4-10.4) 06/30/24 01:58 Neut % (Auto) 68.8 % 06/30/24 01:58 Lymph % (Auto) 21.0 % 06/30/24 01:58 [place] % (Auto) 9.1 % 06/30/24 01:58 Eos % (Auto) 0.0 % 06/30/24 01:58 Baso % (Auto) 0.4 % 06/30/24 01:58 Neut # (Auto) 1.90 10^3/uL (1.8-7.7) 06/30/24 01:58 Lymph # (Auto) 0.6 10^3/uL (0.8-4.8) L 06/30/24 01:58 [place] # (Auto) 0.3 10^3/uL (0.2-0.9) 06/30/24 01:58 Eos # (Auto) 0.0 10^3/uL (0.0-0.8) 06/30/24 01:58 Baso # (Auto) 0.0 10^3/uL (0.0-0.1) 06/30/24 01:58 Nucleated RBC % (auto) 0 % 06/30/24 01:58 Total Counted 100 (0-100) 06/23/24 10:15 Atypical Lymphs % 0.0 % (0-5) 06/23/24 10:15 Absolute Neutrophils 3.0 10^3/cmm (1.4-6.5) 06/23/24 10:15 Segmented Neutrophils 43 % 06/23/24 10:15 Band Neutrophils 46.0 % 06/23/24 10:15 Absolute Lymphocytes 0.3 10^3/cmm (1.2-3.4) L 06/23/24 10:15 Lymphocytes (Manual) 9 % 06/23/24 10:15 Monocytes (Manual) 2.0 % 06/23/24 10:15 Absolute Monocytes 0.1 10^3/cmm (0.1-0.6) 06/23/24 10:15 Eosinophils (Manual) 0 % 06/23/24 10:15 Absolute Eosinophils 0.0 10^3/cmm (0.0-0.7) 06/23/24 10:15 Basophils (Manual) 0.0 % 06/23/24 10:15 Absolute Basophils 0.0 10^3/cmm (0.0-0.2) 06/23/24 10:15 Nucleated RBCs # 0.0 /100WBC 06/30/24 01:58 Differential Comment Yes 06/23/24 15:30 Platelet Estimate Decreased (Normal) 06/23/24 10:15 Hypochromasia 2+ H 06/23/24 10:15 Poikilocytosis 1+ H 06/23/24 10:15 Anisocytosis 2+ H 06/23/24 10:15 Microcytosis 2+ H 06/23/24 10:15 PT 19.10 SECONDS (12.1-14.9) H 06/26/24 03:25 INR 1.50 (0.8-1.2) H 06/26/24 03:25 Specimen Type Arterial 06/23/24 02:12 Sample Site Brachial, right 06/23/24 02:12 ABG pH 7.48 (7.35-7.45) H 06/23/24 02:12 ABG pCO2 30.1 mmHg (35-45) L 06/23/24 02:12 ABG pO2 67.0 mmHg (80.0-100.0) L 06/23/24 02:12 ABG HCO3 22.5 mmol/L (22-26) 06/23/24 02:12 ABG Base Excess -0.3 mmol/L (-2.0-2.0) 06/23/24 02:12 Suman Test N/a 06/23/24 02:12 Hematocrit 37.3 % (42-52) L 06/23/24 02:12 Hgb O2 Saturation 91.6 % (95-100) L 06/23/24 02:12 Carboxyhemoglobin 1.5 %THgb (0.4-20.1) 06/23/24 02:12 Methemoglobin 1.0 % (0.4-1.5) 06/23/24 02:12 Total Hemoglobin 12.2 g/dL (14-18) L 06/23/24 02:12 O2 Delivery Device Room air 06/23/24 02:12 Back Tender Pulp Drier ID [email or web address] 06/23/24 02:12 Sodium 138 mmol/L (136-145) 06/30/24 01:58 Potassium 3.4 mmol/L (3.5-5.1) L 06/30/24 01:58 Chloride 101 mmol/L (98-107) 06/30/24 01:58 Carbon Dioxide 27 mmol/L (22-29) 06/30/24 01:58 Anion Gap 13.4 (5-19) 06/30/24 01:58 BUN 22 mg/dL (8-23) 06/30/24 01:58 Creatinine 0.7 mg/dL (0.7-1.2) 06/30/24 01:58 GFR Calculation 113.5 mL/min (90-130) 06/30/24 01:58 Glucose 95 mg/dL (65-115) 06/30/24 01:58 POC Glucose 101 mg/dL (70-110) 06/24/24 00:48 Calculated Osmolality 289 mOsm/kg (285-295) 06/30/24 01:58 Lactic Acid 2.1 mmol/L (0.5-2.2) 06/24/24 03:34 Lactic Acid (Sepsis) 1.8 mmol/L (0.5-2.2) 06/24/24 06:44 Lactate 2.6 mmol/L (0.5-2.2) H 06/27/24 05:17 Calcium 9.7 mg/dL (8.5-10.5) 06/30/24 01:58 Phosphorus 1.8 mg/dL (2.5-4.5) L 06/30/24 01:58 Magnesium 1.6 mg/dL (1.7-2.3) L 06/30/24 01:58 Ferritin 155 ng/mL (30-400) 06/27/24 05:17 Total Bilirubin 1.6 mg/dL (0.15-1.2) H 06/30/24 01:58 AST 28 U/L (0-40) 06/30/24 01:58 ALT 19 U/L (0-41) 06/30/24 01:58 Alkaline Phosphatase 62 U/L (40-130) 06/30/24 01:58 Ammonia 58 umol/L (16-60) 06/26/24 03:25 Creatine Kinase 22 U/L (39-308) L 06/26/24 03:25 C-Reactive Protein 56.9 mg/L (0.0-4.9) H 06/26/24 03:25 NT-Pro-B Natriuret Pep 3195 pg/mL (0-125) H 06/26/24 03:25 Total Protein 6.9 g/dL (6.6-8.7) 06/30/24 01:58 Albumin 3.4 g/dL (3.5-5.2) L 06/30/24 01:58 Globulin 3.5 g/dL (1.3-4.6) 06/30/24 01:58 Lipase 34 U/L (13-60) 06/23/24 01:10 Procalcitonin 4.37 ng/mL (0-0.5) H 06/26/24 03:25 Urine Color [place] (Yellow) A 06/23/24 02:40 Urine Appearance Clear (CLEAR) 06/23/24 02:40 Urine pH 5.0 (5-7) 06/23/24 02:40 Ur Specific Philipp 1.029 (1.005-1.030) 06/23/24 02:40 Urine Protein Trace (Negative) A 06/23/24 02:40 Urine Glucose (UA) Negative (Normal) 06/23/24 02:40 Urine Ketones Trace (Negative) 06/23/24 02:40 Urine Blood Negative (Negative) 06/23/24 02:40 Urine Nitrate Negative (Negative) 06/23/24 02:40 Urine Bilirubin 1+ (Negative) H 06/23/24 02:40 Urine Urobilinogen 1.0 mg/dL (Negative) 06/23/24 02:40 Ur Leukocyte Esterase Trace (Negative) A 06/23/24 02:40 Urine RBC 0-4 /hpf (0-2) H 06/23/24 02:40 Urine WBC 0-4 /hpf (0-5) H 06/23/24 02:40 Ur Squamous Epith Cells 0-4 /hpf (0-5) H 06/23/24 02:40 Amorphous Sediment Not Reportable 06/23/24 02:40 Urine Bacteria Trace /hpf (NONE) 06/23/24 02:40 Hyaline Casts 25-40 /lpf H 06/23/24 02:40 Urine Mucus 1+ /hpf 06/23/24 02:40 Fluid Color Pale yellow 06/23/24 15:30 Fluid Appearance Cloudy 06/23/24 15:30 Fluid Specific Grav 1.015 06/23/24 15:30 Fluid pH 7.5 06/23/24 15:30 Fluid WBC 152 /uL 06/23/24 15:30 Fluid RBC 1.000 10^3/uL 06/23/24 15:30 Fld Polynuclear WBCs # 0.014 06/23/24 15:30 Fld Polynuclear WBCs % 9.200 % 06/23/24 15:30 Fl Mononucl WBCs #(Auto) 0.138 06/23/24 15:30 Fl Mononuclear % Auto 90.800 % 06/23/24 15:30 Fld Crystal Laterality Ascites 06/23/24 15:30 Fluid Glucose 87.0 mg/dL 06/23/24 15:30 Fluid Total Protein 1.4 g/dL 06/23/24 15:30 Fluid Albumin 0.6 g/dL 06/23/24 15:30 Fluid LDH 53 U/L 06/23/24 15:30 Fluid Alk Phosphatase 12 IU/L 06/23/24 15:30 Fluid Cholesterol 24 mg/dL (0-200) 06/23/24 15:30 Fluid Triglycerides 146 mg/dL (0-150) 06/23/24 15:30 Fluid Uric Acid 9 mg/dL 06/23/24 15:30 Peritoneal Amylase <10 U/L 06/23/24 15:30 Vancomycin Trough 7.6 ug/mL (10-15) L 06/26/24 07:35 Urine Opiates Screen Negative ng/mL (Negative) 06/23/24 00:22 Ur Barbiturates Screen Negative ng/mL (Negative) 06/23/24 00:22 Ur Phencyclidine Scrn Negative ng/mL (Negative) 06/23/24 00:22 Ur Amphetamines Screen Negative ng/mL (Negative) 06/23/24 00:22 U Benzodiazepines Scrn Positive ng/mL (Negative) H 06/23/24 00:22 Urine Cocaine Screen Negative ng/mL (Negative) 06/23/24 00:22 U Marijuana (THC) Screen Negative ng/mL (Negative) 06/23/24 00:22 Ethyl Alcohol < 10 mg/dL (0-10) 06/23/24 01:10 Hepatitis A IgM Ab Non-reactive (Nonreactive) 06/23/24 01:10 Hep Bs Antigen Non-reactive (Nonreactive) 06/23/24 01:10 Hep B Core IgM Ab Non-reactive (Nonreactive) 06/23/24 01:10 Hepatitis C Antibody Reactive (Nonreactive) H 06/23/24 01:10 HCV RNA (PCR) IUs/ml 5.36 Log IU/mL (NOT DETECTED) H 06/23/24 16:38 HCV RNA (PCR) IU log10 424575 IU/mL (NOT DETECTED) H 06/23/24 16:38 HIV 1&2 Ab & HIV 1 Ag Non-reactive (Non-Reactiv) 06/23/24 01:10 HIV 1&2 Antibody Non-reactive (Non-Reactiv) 06/23/24 01:10 Influenza A (PCR) Negative (Negative) 06/23/24 01:15 Influenza Type B (PCR) Negative (Negative) 06/23/24 01:15 RSV (PCR) Negative (Negative) 06/23/24 01:15 SARS-CoV-2 (PCR) Negative (Negative) 06/23/24 01:15 Blood Type A Positive 06/23/24 01:10 Rho(D) Type Rh positive 06/23/24 01:10 Antibody Screen Negative 06/23/24 01:10 Vitals Last Vital Signs Temp 97.5 F L 06/30/24 11:11 Pulse 78 06/30/24 11:11 Resp 19 H 06/30/24 11:11 BP 155/81 06/30/24 11:11 Pulse Ox 100 06/30/24 11:11 O2 Del Method Room Air 06/30/24 11:11 O2 Flow Rate 2 06/26/24 06:00 Discharge Plan Discharge Patient Disposition: Xfer SNF Condition: Stable Prescriptions: New furosemide 40 mg Tablet 40 mg PO DAILY@0800 30 Days Qty: 30 0RF midodrine 5 mg Tablet 5 mg PO Q8H 30 Days Qty: 90 0RF ciprofloxacin HCl 500 mg Tablet 500 mg PO DAILY 30 Days Qty: 30 0RF pantoprazole 40 mg Tablet,Delayed Release (Dr/Ec) 40 mg PO BID 30 Days Qty: 60 0RF mirtazapine 15 mg Tablet 15 mg PO BEDTIME 30 Days Qty: 30 0RF multivitamin with folic acid [Thera] 400 mcg Tablet 1 tab PO DAILY 30 Days Qty: 30 0RF potassium chloride [Klor-Con M20] 20 mEq tablet,ER particles/crystals 20 meq PO DAILY 30 Days Qty: 30 0RF lactulose 10 gram/15 mL solution 30 g PO DAILY 30 Days Qty: 1200 0RF spironolactone 25 mg tablet 25 mg PO DAILY 30 Days Qty: 30 0RF magnesium L-lactate [Magtab] 84 mg tablet extended release 84 mg PO DAILY 30 Days Qty: 30 0RF Continued glycerin (adult) Suppository 1 supp WA BID PRN (Reason: constipation) Qty: 12 0RF Discharge Orders: Discharge Order (Routine); Ordered 07/01/24 Ordered By: Zack Mendoza Referrals: wound care [Other] - 4-7 days ([facility] wound care We have notified your physician's clinic of the need for a follow-up appointment to be scheduled. If you have not heard from them within the next 2 business days, please call them directly. ) [facility] [Outside] Adilson Thomas MD [Referring] - 1 week (liver failure, cirhosis, liver cancer We have notified your physician's clinic of the need for a follow-up appointment to be scheduled. If you have not heard from them within the next 2 business days, please call them directly. ) Chasidy Jiménez MD [Hospitalist] - 07/03/24 3:00 pm (hepatocellular cancer) Discharge Diet: As Directed Discharge Activity: Resume usual activity Activity Restrictions/Additional Instructions: - Please abstain from alcohol consumption -Please follow-up with oncology for your liver cancer -Please follow-up with general gastroenterology in [place] for your liver cirrhosis, hepatitis C -For hepatitis C please follow-up with gastroenterology in [place] -If you have worsening abdominal pain please come back to the emergency room so you can have a paracentesis -Please drink protein shakes twice daily -Please participate with physical therapy -I have placed you on chronic ciprofloxacin for SBP prophylaxis Continue dysphagia diet with extremely thick/pur?ed foods, mildly thick liquids. Wound Number 1: right anterior superior lower leg Dressing change frequency: Daily Wound Cleansing: Saline Topical Orders: Santyl Ointment (applied nickel thick to entire wound bed) Secondary Wound Care Dressing: rolled gauze Edema Control: Elevate legs to heart level for 30 mins daily and/or when sitting Wound Number 2: right knee Wound Cleansing: Saline Primary Wound Care Dressing: hydrofera blue ready Secondary Wound Care Dressing: bordered gauze or rolled gauze Edema Control: Elevate legs to heart level for 30 mins daily and/or when sitting Wound Number 3: right posterior lower leg Dressing change frequency: Daily Wound Cleansing: Saline Primary Wound Care Dressing: hydrofera blue ready Secondary Wound Care Dressing: bordered gauze or rolled gauze. Edema Control: Elevate legs to heart level for 30 mins daily and/or when sitting and Other Edema Control Order/Instructions: (double layer tubi data analysis manager) Discharge Attestations Time Spent in Discharge Care*: greater than 30 min Quality Metrics Clinical Quality Measures [ No reported AMI, CVA or VTE this stay] Coding Level of Care Code 20106 Total time (in minutes) for Discharge: 45 Diagnoses Acute upper gastrointestinal bleeding K92.2 Anemia in chronic illness D63.8 Cirrhosis of liver K70.30 Ascites presence: without ascites Hepatic cirrhosis type: alcoholic cirrhosis Esophageal varices I85.00 Portal hypertension K76.6 Liver cancer C22.9 Metastatic cancer to liver C78.7 Ascites R18.8 Portal vein thrombosis I81 SBP (spontaneous bacterial peritonitis) K65.2 NIURKA (acute kidney injury) N17.9 Hyperkalemia E87.5 Hyponatremia E87.1 Sepsis A41.9 Volume overload E87.70 Polysubstance abuse F19.10 Septic shock A41.9; R65.21 Acute liver failure K72.00 Protein calorie malnutrition E46 Elevated lactic acid level R79.89 Cancer cachexia R64 Severe protein-calorie malnutrition E43 Physical deconditioning R53.81
--- NOTE | 2024-06-30 15:38 | P.CONIM_ITS ---
Providers/Reason For Consult 2 Consulting Physician/Specialty*: Wound Care Reason for Consult*: Open Wounds to right lower extremity Requesting Physician: Dr. Reji Nunez Attending Physician: Reji Nunez MD History of Present Illness History of Present Illness Ashish was evaluated at bedside today on the [facility] floor. He appears to be more comfortable today. He does still have abdominal distention, and reports he feels lousy. He is alert and oriented x 3. He states he got the wounds on his lower extremity from scraping his leg on the floor when changing a transmission weeks back. He also reports hurting it again while he was working on a roof. He does still have a fair amount of edema in the right lower extremity. There is a small amount of erythema to the lower extremity, again improved from last week. There is no warmth upon palpation to his lower extremity. Medications/Allergies Home Medications ?Medication ?Instructions ?Recorded ?Confirmed ?Last Taken ?Type glycerin (adult) 1 supp AK BID PRN constipati on #12 05/21/24 06/23/24 Unknown Rx ea Allergies Allergy/AdvReac Type Severity Reaction Status Date / Time No Known Allergies Allergy Verified 05/21/24 16:54 Current Medications Generic Name Dose Route Start Last Admin Trade Name Freq PRN Reason Stop Dose Admin Ciprofloxacin HCl 500 mg 06/27/24 21:00 06/30/24 08:18 Ciprofloxacin 500 Mg Tablet PO 500 mg BID@0900,2100 REAL Administration Protocol Collagenase 1 applic 06/25/24 14:15 06/30/24 08:18 Collagenase Oint 30 Gm TOPICAL 1 applic DAILY REAL Administration Doxycycline Monohydrate 100 mg 06/27/24 18:00 06/30/24 08:18 Doxycycline 100 Mg Tablet PO 100 mg BID REAL Administration Protocol Folic Acid 1 mg 06/24/24 09:00 06/30/24 08:18 Folic Acid 1 Mg Tablet PO 1 mg DAILY REAL Administration Furosemide 40 mg 06/26/24 13:20 06/30/24 08:18 Furosemide 40 Mg Tablet PO 40 mg DAILY@0800 REAL Administration Dextrose 250 mls @ 1,000 mls/hr 06/23/24 06:07 06/23/24 09:38 D10w IV Infused PRN PRN Infusion Adult DKA Hypoglycemia Nursing Protocol Protocol Lactulose 20 gm 06/23/24 09:00 06/30/24 08:18 Lactulose Oral Liq 20 Gm/30 Ml Udc PO 20 gm DAILY REAL Administration Mirtazapine 15 mg 06/29/24 21:00 06/29/24 20:27 Mirtazapine 15 Mg Tablet PO 15 mg BEDTIME REAL Administration Morphine Sulfate 2 mg 06/24/24 13:43 06/29/24 20:46 Morphine 4 Mg/Ml Sdv 1 Ml IVP 2 mg Q4H PRN Administration SEVERE PAIN Multivitamins Therapeutic 1 tab 06/24/24 09:00 06/30/24 08:18 Multivitamin Therapeutic Tablet PO 1 tab DAILY REAL Administration Pantoprazole Sodium 40 mg 06/28/24 09:00 06/30/24 08:[address] 40 Mg Tablet PO 40 mg BID REAL Administration Senna/Docusate Sodium 1 tab 06/23/24 09:00 06/30/24 08:18 Sennosides-Docusate Tablet PO 1 tab DAILY REAL Administration Silver Sulfadiazine 1 applic 06/23/24 14:15 06/30/24 08:18 Silvasorb Gel 44.4 Ml TOPICAL 1 applic DAILY REAL Administration Sucralfate 1 gm 06/23/24 11:00 06/30/24 10:43 Sucralfate 1 Gm/10 Ml Oral Liq Udc PO 1 gm Q6H REAL Administration PFSH Acute 2 PFSH: Medical History Non-pressure chronic ulcer of other part of right lower leg limited to breakdown of skin COVID-19 Liver cirrhosis Hepatitis C Social History Smoking and tobacco/nicotine status: never used tobacco/nicotine Vitals/I&O/Wt Last Vital Signs Temp 97.5 F L 06/30/24 11:11 Pulse 78 06/30/24 11:11 Resp 19 H 06/30/24 11:11 BP 155/81 06/30/24 11:11 Pulse Ox 100 06/30/24 11:11 O2 Del Method Room Air 06/30/24 11:11 O2 Flow Rate 2 06/26/24 06:00 06/30/24 06/30/24 06/30/24 06:59 14:59 22:59 Intake Total 100 / 963 431.2270 / 209.0909 Output Total 0 / 625 Balance 0 / 95 100 / 683 899.5163 / 209.0909 Weight last 48 hrs Weight 47.083 kg Weight 46.221 kg Physical Exam 2 Urinary Catheter Management: Fish: Cath Placed During This Visit: yes Reason for Continuing Indwelling Catheter: Other Urinary Catheter Date of Insertion: 06/23/24 Urinary Catheter Time of Insertion: 02:40 Data 06/30/24 01:58 06/30/24 01:58 Micro: Microbiology 06/23/24 15:30 Gram Stain - Final Peritoneal Fluid Anaerobic Culture - Final Body Fluid Culture - Final A&P Assessment and plan (1) Non-pressure chronic ulcer of other part of right lower leg limited to breakdown of skin: Right lower extremity erythema and edema are both improved. There is still 1+ pitting edema in his lower extremity. He has an excellent palpable dorsalis pedis pulse and his capillary refill is less than 3 seconds. All wounds are showing signs of improvement. There is less drainage noted to the posterior lower extremity wound and it remains very small. There is new epithelialization in both the right anterior superior lower extremity wound and the right knee wound. Both wounds have increasing granulation. There is a minimal amount of necrotic tissue noted in the right anterior superior lower extremity wound. All wound beds appear to be moist, therefore we will stop the use of SilvaSorb to the posterior wound and the right knee wound. Continue with Hydrofera Blue to both of these wounds. Continue the use of Santyl to the anterior superior lower leg given the positive response the wound is showing. Rolled gauze should be utilized to secure the wound dressings. Mr. Beckett would benefit from continued leg elevation. This may be achieved by utilizing pillows while he is laying in his bed. He should avoid sitting in a chair with his legs hanging dependent. Given his excellent dorsalis pedis pulse and less than 3-second capillary refill, he would also benefit from a a double layer Tubigrip to provide some edema control. This should be cut and fit to his leg starting at the base of his toes to the level just below his knee. Nutrition will be especially important for wound healing. PDMP PDMP Reviewed: Not Reviewed Consult Attestations 2 Time Spent in Patient Care: 16 - 35 minutes Coding Level of Care Code Acute Code for Chg Fwd Diagnoses Non-pressure chronic ulcer of other part of right lower leg limited to breakdown of skin L97.811 Wound Assessment Wound Assessment Wound Number 1 Lower Leg: Descriptor: Right, Anterior and Superior Primary Etiology:: Trauma, Other Length: (cm): 3.5 cm Width: (cm): 3 cm Depth: (cm): 0.1 cm Epithelialization:: None Tunneling:: No Undermining:: No Exudate Amount:: Medium Drainage Type: Serosanguineous Exudate Color:: Brown Foul Odor After Cleansing:: No Slough/Fibrin?: Yes Granulation Amount: Large (67-100%) Granulation Quality:: Red and [place] Necrotic Amount:: Small (1-33%) Necrotic Type:: Adherent Slough Wound Number 2 Knee: Descriptor: Right and Anterior Primary Etiology:: Trauma, Other Length: (cm): 1.4 cm Width: (cm): 1.5 cm Depth: (cm): 0.1 cm Epithelialization:: Small (1-33%) Tunneling:: No Undermining:: No Exudate Amount:: Medium Drainage Type: Serosanguineous Exudate Color:: Brown Foul Odor After Cleansing:: No Slough/Fibrin?: No Granulation Amount: Large (67-100%) Granulation Quality:: Red Necrotic Amount:: Small (1-33%) Necrotic Type:: Adherent Slough Wound Number 3 Lower Leg: Descriptor: Right and Posterior Primary Etiology:: Trauma, Other Length: (cm): 0.1 cm Width: (cm): 0.1 cm Depth: (cm): 0.1 cm Epithelialization:: None Tunneling:: No Undermining:: No Exudate Amount:: Small Drainage Type: Serous Foul Odor After Cleansing:: No Slough/Fibrin?: No Granulation Amount: None Necrotic Amount:: Small (1-33%) Necrotic Type:: Adherent Slough Wound Orders Wound Number 1: right anterior superior lower leg Dressing change frequency: Daily Wound Cleansing: Saline Topical Orders: Santyl Ointment (applied nickel thick to entire wound bed) Secondary Wound Care Dressing: rolled gauze Edema Control: Elevate legs to heart level for 30 mins daily and/or when sitting Wound Number 2: right knee Wound Cleansing: Saline Primary Wound Care Dressing: hydrofera blue ready Secondary Wound Care Dressing: bordered gauze or rolled gauze Edema Control: Elevate legs to heart level for 30 mins daily and/or when sitting Wound Number 3: right posterior lower leg Dressing change frequency: Daily Wound Cleansing: Saline Primary Wound Care Dressing: hydrofera blue ready Secondary Wound Care Dressing: bordered gauze or rolled gauze. Edema Control: Elevate legs to heart level for 30 mins daily and/or when sitting and Other Edema Control Order/Instructions: (double layer tubi shuffle board operator)
[2024-06-30 15:46] VITALS: BP 124/74; PULSE 77; RESP 18; TEMP 36.4; O2SAT 99
[2024-06-30 16:02] LABS: Carcinoembryonic Antigen 2.3 ng/mL (0.0-4.7)
[2024-06-30 16:30] LABS: Cancer Antigen 19 9 30.86 U/mL (0-35)
[2024-06-30] MEDS: spironolactone 25 mg Tablet PO (17:14)
[2024-06-30 20:00] VITALS: BP 132/54; PULSE 68; RESP 16; TEMP 36.5; O2SAT 92
[2024-06-30] MEDS: midodrine 5 mg TABLET PO (20:57)
[2024-06-30] MEDS: mirtazapine 15 mg Tablet PO (20:57)
[2024-07-01] VITALS: BP 128/58; PULSE 70; RESP 16; TEMP 36.5; O2SAT 93
[2024-07-01 03:36] VITALS: BP 122/62; PULSE 70; RESP 16; TEMP 36.5; O2SAT 93
[2024-07-01] MEDS: sucralfate 1 gm/10 mL Oral Liq UDC PO (04:45)
[2024-07-01] MEDS: midodrine 5 mg TABLET PO (04:45)
[2024-07-01 05:29] LABS: Basophils % 0.8 %; Eosinophils % 0.3 %; Hematocrit 39.9 % (37-53); Lymphocytes # 0.6 10^3/uL (0.8-4.8); Lymphocytes % 15.2 %; Mean Corpuscular HGB Conc 30.8 g/dL (30-55); Mean Corpuscular Hemoglobin 22.7 pg (27-33); Mean Corpuscular Volume 73.6 fl (82-101); Mean Platelet Volume 9.4 fL (7.4-10.4); Monocytes # 0.2 10^3/uL (0.2-0.9); Monocytes % 6.4 %; Nucleated Red Blood Cells % 0 %; Platelet Count 65 10^3/cmm (157-399); Red Blood Count 5.42 10^6/uL (3.85-5.65); Red Cell Distribution Width 21.5 % (12.1-15.1); White Blood Count 3.76 10^3/uL (3.29-11.43)
[2024-07-01 06:00] VITALS: BMI 15.3
[2024-07-01 06:01] LABS: Alanine Aminotransferase 19 U/L (0-41); Albumin Level 3.3 g/dL (3.5-5.2); Alkaline Phosphatase 62 U/L (40-130); Aspartate Amino Transferase 35 U/L (0-40); Blood Urea Nitrogen 25 mg/dL (8-23); Calcium 9.1 mg/dL (8.5-10.5); Carbon Dioxide 25 mmol/L (22-29); Chloride 102 mmol/L (98-107); Creatinine Clr Calc Pharmacy 70.9982; Globulin 3.7 g/dL (1.3-4.6); Glomerular Filtration Rate 113.5 mL/min (90-130); Glucose 82 mg/dL (65-115); Osmolality Calculated 289 mOsm/kg (285-295); Sodium 138 mmol/L (136-145); Total Bilirubin 1.8 mg/dL (0.15-1.2)
[2024-07-01 06:02] LABS: Anion Gap 14.9 (5-19); Potassium 3.9 mmol/L (3.5-5.1)
[2024-07-01 06:11] LABS: Magnesium 1.9 mg/dL (1.7-2.3); Phosphorus 2.7 mg/dL (2.5-4.5)
--- NOTE | 2024-07-01 07:59 | PC.NURSE ---
Attempted to call report to [facility]. Nelli says they are unable to take report at this time.
[2024-07-01 08:00] VITALS: BP 120/78; PULSE 88; RESP 17; TEMP 36.4; O2SAT 97
[2024-07-01 08:09] VITALS: PULSE 71; RESP 16; O2SAT 94
[2024-07-01] MEDS: lactulose oral liq 20 gm/30 mL UDC PO (08:26)
[2024-07-01] MEDS: pantoprazole DR 40 mg Tablet PO (08:27)
[2024-07-01] MEDS: folic acid 1 mg Tablet PO (08:27)
[2024-07-01] MEDS: ciprofloxacin 500 mg Tablet PO (08:27)
[2024-07-01] MEDS: spironolactone 25 mg Tablet PO (08:27)
[2024-07-01] MEDS: multivitamin therapeutic Tablet 1 TAB PO (08:27)
[2024-07-01] MEDS: doxycycline 100 mg Tablet PO (08:27)
[2024-07-01] MEDS: sennosides-docusate Tablet 1 TAB PO (08:27)
[2024-07-01] MEDS: FUROsemide 40 mg Tablet PO (08:27)
[2024-07-01 09:32] LABS: SARS Covid-2 Antigen Negative (Negative)
--- NOTE | 2024-07-01 10:13 | PC.NURSE ---
Report called to Muriel at [facility]. All questions answered at this time.
[2024-07-01] MEDS: thiamine 100 mg Tablet PO (10:45)
[2024-07-01 11:42] VITALS: BP 120/78; PULSE 71; RESP 16; TEMP 36.4; O2SAT 97
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
== END 2024-07-01 11:42 | disposition skilled nursing facility (03) | DRG 871 ==
LOC: ER 01:02 → ICU 04:26 → MEDSURG 06-26 20:44
PROVIDERS: Family Medicine; Admitting Provider Internal Medicine; Emergency Provider Emergency Medicine; Visit Provider Internal Medicine
DX: A41.9 Sepsis, unspecified organism (principal); E43 Unspecified severe protein-calorie malnutrition; I81 Portal vein thrombosis; K65.2 Spontaneous bacterial peritonitis; R65.21 Severe sepsis with septic shock; K72.00 Acute and subacute hepatic failure without coma; G93.41 Metabolic encephalopathy; K92.2 Gastrointestinal hemorrhage, unspecified; K76.6 Portal hypertension; C22.9 Malignant neoplasm of liver, not specified as primary or secondary; E87.1 Hypo-osmolality and hyponatremia; N17.9 Acute kidney failure, unspecified; R64 Cachexia; Z68.1 Body mass index [BMI] 19.9 or less, adult; C77.2 Secondary and unspecified malignant neoplasm of intra-abdominal lymph nodes; L03.115 Cellulitis of right lower limb; L97.811 Non-pressure chronic ulcer of other part of right lower leg limited to breakdown of skin; D63.8 Anemia in other chronic diseases classified elsewhere; E87.5 Hyperkalemia; F19.10 Other psychoactive substance abuse, uncomplicated; K70.31 Alcoholic cirrhosis of liver with ascites; F17.210 Nicotine dependence, cigarettes, uncomplicated; Z11.52 Encounter for screening for COVID-19; Z86.19 Personal history of other infectious and parasitic diseases
CPT/HCPCS: 36415; 36416; 36600; 49083; 51702; 70450; 71260; 73700; 74177; 76536; 80053; 80074; 80202; 80306; 80307; 80503; 81001; 82042; 82140; 82150; 82378; 82465; 82550; 82728; 82805; 82945; 82962; 83605; 83615; 83690; 83735; 83880; 83986; 84075; 84100; 84145; 84157; 84315; 84478; 84560; 85007; 85014; 85018; 85025; 85610; 86140; 86301; 86850; 86900; 87015; 87040; 87070; 87075; 87116; 87205; 87206; 87426; 87522; 87637; 87801; 87806; 88112; 88305; 89050; 92507; 92523; 92526; 92610; 93005; 93970; 96365; 96367; 96372; 96374; 96375; 96376; 97110; 97116; 97162; 97165; 97530; 99285; J0612; J0696; J1610; J1815; J1940; J2060; J2270; J2354; J2405; J2470; J2543; J3370; J3372; J3411; J3475; J3480; J7030; J7050; J7120; J7799; J9999; P9046; P9047

== ENCOUNTER 2024-07-08 14:15 | Oncology outpatient (recurring) (ONCR) | payer SELFPAY ==
[2024-07-08 15:12] LABS: Basophils % 0.5 %; Eosinophils # 0.2 10^3/uL (0.0-0.8); Eosinophils % 3.1 %; Hematocrit 39.7 % (37-53); Lymphocytes # 0.7 10^3/uL (0.8-4.8); Lymphocytes % 11.3 %; Mean Corpuscular HGB Conc 30.2 g/dL (30-55); Mean Corpuscular Hemoglobin 22.3 pg (27-33); Mean Corpuscular Volume 73.9 fl (82-101); Mean Platelet Volume 9.7 fL (7.4-10.4); Monocytes # 0.5 10^3/uL (0.2-0.9); Monocytes % 7.9 %; Neutrophils # 4.79 10^3/uL (1.8-7.7); Neutrophils % 76.9 %; Nucleated Red Blood Cells % 0 %; Platelet Count 101 10^3/cmm (157-399); Red Blood Count 5.37 10^6/uL (3.85-5.65); Red Cell Distribution Width 22.6 % (12.1-15.1); White Blood Count 6.22 10^3/uL (3.29-11.43)
[2024-07-08 16:09] LABS: Alanine Aminotransferase 29 U/L (0-41); Albumin Level 3.6 g/dL (3.5-5.2); Alkaline Phosphatase 102 U/L (40-130); Anion Gap 18.1 (5-19); Aspartate Amino Transferase 56 U/L (0-40); Blood Urea Nitrogen 43 mg/dL (8-23); Calcium 9.6 mg/dL (8.5-10.5); Carbon Dioxide 23 mmol/L (22-29); Chloride 96 mmol/L (98-107); Globulin 4.6 g/dL (1.3-4.6); Glomerular Filtration Rate 33.8 mL/min (90-130); Glucose 89 mg/dL (65-115); Osmolality Calculated 286 mOsm/kg (285-295); Potassium 4.1 mmol/L (3.5-5.1); Sodium 133 mmol/L (136-145); Total Bilirubin 1.9 mg/dL (0.15-1.2); Total Protein 8.2 g/dL (6.6-8.7)
== END 2024-07-21 23:59 | disposition home or self-care (01) ==
PROVIDERS: PCP Internal Medicine; Visit Provider Internal Medicine Medical Oncology
DX: C22.9 Malignant neoplasm of liver, not specified as primary or secondary (principal); F17.200 Nicotine dependence, unspecified, uncomplicated; K74.60 Unspecified cirrhosis of liver
CPT/HCPCS: 36415; 80053; 82105; 85025

== ENCOUNTER 2024-07-27 07:48 | Inpatient (IN) | payer SELFPAY ==
[2024-07-27 07:49] VITALS: BP 61/23; PULSE 55; RESP 20; O2SAT 96; BMI 12.5
[2024-07-27 08:07] VITALS: TEMP 29.2
--- NOTE | 2024-07-27 08:09 | W.ED.WEAKNES ---
HPI - Weakness General: Chief complaint: Weakness Stated complaint: weakness Time Seen by Provider: 07/27/24 07:51 Source: EMS Mode of arrival: EMS Limitations: altered mental status History of Present Illness: 64-year-old male has a history of cirrhosis he also has a history of liver cancer with metastases. I did review oncology notes patient is not a treatment candidate. He has a history of severe malnutrition as well. Patient has deteriorated the [facility] this morning is very altered and hypotensive and was sent here. 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 Physical Exam Const: COMMON NORMALS: apparent distress and negative for healthy appearing EXAM LIMITATIONS: altered mental status GENERAL APPEARANCE: frail appearing HENMT: COMMON NORMALS: normocephalic and atraumatic HEAD & SCALP: normocephalic and atraumatic Eye: COMMON NORMALS: conjunctivae normal CONJUNCTIVA: Yes conjunctivae normal Neck/C-Spine: COMMON NORMALS: full ROM and supple Chest: COMMONS NORMALS: normal inspection of the chest Resp: COMMON NORMALS: No retractions and No use of accessory muscles EFFORT & INSPECTION: Yes labored Cardio: COMMON NORMALS: regular rate, regular rhythm and No murmurs present (Cardio) RATE: regular rate RHYTHM: regular rhythm GI: COMMON NORMALS: Normal to inspection, nondistended, normoactive bowel sounds present, Soft to palpation, non-tender and no masses PALPATION: Yes Soft to palpation Extremity: COMMON NORMALS: normal to inspection and full ROM Neuro: COMMON NORMALS: moves all extremities and no focal motor deficits Psych: COMMON NORMALS: negative for mental status grossly normal Skin: COMMON NORMALS: no rashes or lesions noted and no wounds GENERAL SKIN EXAM: no rashes or lesions noted Course Vital Signs: Vital signs: Vital Signs Temperature 84.6 F L 07/27/24 08:07 Pulse Rate 56 L 07/27/24 09:00 Respiratory Rate 20 H 07/27/24 07:49 Blood Pressure 45/21 07/27/24 09:00 Pulse Oximetry 90 07/27/24 09:00 Oxygen Delivery Me thod Nasal Cannula 07/27/24 07:49 Oxygen Flow Rate 4 07/27/24 07:49 MDM - Weakness Medical Decision Making Patient presents here history of liver cancer with mets patient arrived he is altered he is hypothermic extremely hypotensive I had a long discussion with family did place patient on hospice and comfort care will admit on comfort care at this time. Medical Records I reviewed the patient's medical records. No radiology studies performed this visit Discharge Plan Discharge Patient Disposition: Admitted As Inpatient Clinical Impression: Liver cancer, Adult failure to thrive Condition: Stable Prescriptions: No Action glycerin (adult) Suppository 1 supp ME BID PRN (Reason: constipation) Qty: 12 0RF furosemide 40 mg Tablet 40 mg PO DAILY@0800 30 Days Qty: 30 0RF midodrine 5 mg Tablet 5 mg PO Q8H 30 Days Qty: 90 0RF ciprofloxacin HCl 500 mg Tablet 500 mg PO DAILY 30 Days Qty: 30 0RF pantoprazole 40 mg Tablet,Delayed Release (Dr/Ec) 40 mg PO BID 30 Days Qty: 60 0RF mirtazapine 15 mg Tablet 15 mg PO BEDTIME 30 Days Qty: 30 0RF potassium chloride [Klor-Con M20] 20 mEq tablet,ER particles/crystals 20 meq PO DAILY 30 Days Qty: 30 0RF lactulose 10 gram/15 mL solution 30 g PO DAILY 30 Days Qty: 1200 0RF spironolactone 25 mg tablet 25 mg PO DAILY 30 Days Qty: 30 0RF olanzapine 10 mg tablet 10 mg PO BEDTIME cyproheptadine 4 mg tablet 4 mg PO BEDTIME oxycodone-acetaminophen [Percocet] 5-325 mg Tablet 1 tab PO Q4H PRN (Reason: Pain) escitalopram oxalate [Lexapro] 10 mg Tablet 10 mg PO DAILY Thera-D 4000 100 mcg (4,000 unit) Tablet 100 mcg PO DAILY Referrals: Kyle Roca MD [Primary Care Provider] - 4-7 days Discharge Diet: Advance as tolerated Discharge Activity: Resume usual activity Patient Instructions: Failure to Thrive (ED) Print Language: Setswana Coding Level of Care Code 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 [employer] Fwd Related Data Home Medications ?Medication ?Instructions ?Recorded ?Confirmed cholecalciferol (vitamin D3) 100 100 mcg PO DAILY 07/27/24 07/27/24 mcg (4,000 unit) tablet (Thera-D 4000) cyproheptadine 4 mg tablet 4 mg PO BEDTIME nightmares 07/27/24 07/27/24 escitalopram oxalate 10 mg tablet 10 mg PO DAILY 07/27/24 07/27/24 (Lexapro) olanzapine 10 mg tablet 10 mg PO BEDTIME 07/27/24 07/27/24 oxycodone-acetaminophen 5 mg-325 1 tab PO Q4H PRN Pain 07/27/24 07/27/24 mg tablet (Percocet) Previous Rx's ?Medication ?Instructions ?Recorded glycerin (adult) 1 supp ME BID PRN constipation #12 05/21/24 ea ciprofloxacin HCl 500 mg tablet 500 mg PO DAILY 30 days #30 tabs 06/30/24 furosemide 40 mg tablet 40 mg PO DAILY@0800 30 days #30 06/30/24 tabs lactulose 10 gram/15 mL oral 30 g (45 mL) PO DAILY 30 days 06/30/24 solution #1,200 mL midodrine 5 mg tablet 5 mg PO Q8H 30 days #90 tabs 06/30/24 mirtazapine 15 mg tablet 15 mg PO BEDTIME 30 days #30 tabs 06/30/24 pantoprazole 40 mg tablet,delayed 40 mg PO BID 30 days #60 tabs 06/30/24 release potassium chloride 20 mEq 20 meq PO DAILY 30 days #30 tabs 06/30/24 tablet,extended release(part/cryst) (Klor-Con M) spironolactone 25 mg tablet 25 mg PO DAILY 30 days #30 tabs 06/30/24 Allergies Allergy/AdvReac Type Severity Reaction Status Date / Time No Known Allergies Allergy Verified 07/14/24 15:15
--- NOTE | 2024-07-27 08:23 | PC.NURSE ---
PROVIDER MADE AWARE OF PATIENT VITALS. PROVIDER HAS SPOKEN WITH FAMILY. PATIENT PLACED ON HOSPICE. PROVIDER TO PLACE COMFORT CARE ORDERS.
[2024-07-27 08:30] VITALS: BP 72/42; PULSE 52; O2SAT 91
[2024-07-27] MEDS: morphine 4 mg/mL SDV 1 mL IM (08:53)
[2024-07-27 09:00] VITALS: BP 45/21; PULSE 56; O2SAT 90
[2024-07-27] MEDS: LORazepam 2 mg/mL oral liquid (mL) PO ×2 (09:21→10:50)
[2024-07-27 10:31] VITALS: BP 71/39; PULSE 55; O2SAT 100
[2024-07-27] MEDS: HYDROmorphone 0.5 MG/0.5 ML INJ 1 MG IM (10:50)
--- NOTE | 2024-07-27 11:02 | PM.HP ---
Providers/Chief Complaint Admitting Physician: Marsha Pena MD Primary Care Provider: Kyle Roca MD Chief Complaint: weakness History of Present Illness Ashish Forrest is a 64 year old male with a past medical history of hepatitis C associated liver cirrhosis recently admitted to the hospital for spontaneous bacterial peritonitis, cellulitis, septic shock, incidentally found to have multiple hepatic mets masses highly suspicious for hepatocellular carcinoma and portal vein thrombosis.. [facility] was [facility] about a month ago. He was recently evaluated by the oncology service and is not deemed to be a candidate for any treatment. Hospice was recommended. [facility] With altered mental status and hypotension. He is hypotensive with blood pressure of 65/40, severely hypothermic with temperature of 84.6, he is obtunded, lethargic, does not respond to any stimuli. His daughters are at bedside today and after an extended discussion with the ER physician family had elected to place patient on comfort care management as he is actively dying. Review of Systems General: Reports: ROS unobtainable due to medical condition Medications/Allergies Home Medications ?Medication ?Instructions ?Recorded ?Confirmed ?Last Taken ?Type glycerin (adult) 1 supp DE BID PRN constipation #12 05/21/24 07/27/24 Unknown Rx ea ciprofloxacin HCl 500 mg tablet 500 mg PO DAILY 30 days #30 tabs 06/30/24 07/27/24 07/25/24 Rx furosemide 40 mg tablet 40 mg PO DAILY@0800 30 days #30 06/30/24 07/27/24 07/25/24 08:00 Rx tabs lactulose 10 gram/15 mL oral 30 g (45 mL) PO DAILY 30 days 06/30/24 07/27/24 07/25/24 08:00 Rx solution #1,200 mL midodrine 5 mg tablet 5 mg PO Q8H 30 days #90 tabs 06/30/24 07/27/24 07/27/24 06:00 Rx mirtazapine 15 mg tablet 15 mg PO BEDTIME 30 days #30 tabs 06/30/24 07/27/24 07/25/24 20:00 Rx pantoprazole 40 mg tablet,delayed 40 mg PO BID 30 days #60 tabs 06/30/24 07/27/24 07/25/24 Rx release potassium chloride 20 mEq 20 meq PO DAILY 30 days #30 tabs 06/30/24 07/27/24 07/25/24 Rx tablet,extended release(part/cryst) (Klor-Con M) spironolactone 25 mg tablet 25 mg PO DAILY 30 days #30 tabs 06/30/24 07/27/24 07/25/24 08:00 Rx cholecalciferol (vitamin D3) 100 100 mcg PO DAILY 07/27/24 07/27/24 07/25/24 08:00 History mcg (4,000 unit) tablet (Thera-D 4000) cyproheptadine 4 mg tablet 4 mg PO BEDTIME nightmares 07/27/24 07/27/24 07/25/24 History escitalopram oxalate 10 mg tablet 10 mg PO DAILY 07/27/24 07/27/24 07/25/24 History (Lexapro) olanzapine 10 mg tablet 10 mg PO BEDTIME 07/27/24 07/27/24 07/25/24 History oxycodone-acetaminophen 5 mg-325 1 tab PO Q4H PRN Pain 07/27/24 07/27/24 Unknown History mg tablet (Percocet) Allergies Allergy/AdvReac Type Severity Reaction Status Date / Time No Known Allergies Allergy Verified 07/14/24 15:15 PFSH Acute PFSH: Medical History (Updated 07/27/24 @ 14:14 by Marsha Pena MD) Secondary malignant neoplasm of liver and intrahepatic bile duct Gastrointestinal hemorrhage Non-pressure chronic ulcer of other part of right lower leg limited to breakdown of skin COVID-19 Liver cirrhosis Hepatitis C Social History Smoking and tobacco/nicotine status: unknown if used tobacco/nicotine Housing: Group Home Vitals/I&O/Wt Last Vital Signs Temp 84.6 F L 07/27/24 08:07 Pulse 67 07/27/24 11:32 Resp 12 07/27/24 11:32 BP 65/40 07/27/24 11:32 Pulse Ox 96 07/27/24 11:32 O2 Del Method Nasal Cannula 07/27/24 07:49 O2 Flow Rate 4 07/27/24 07:49 Weight last 48 hrs Weight 38.555 kg Physical Exam Narrative: General: No acute distress, obtunded, lethargic, appears comfortable currently HEENT: PERRLA, pupils bilaterally equal and reactive, pallors not present A&P Assessment and plan (1) Severe protein-calorie malnutrition: (2) Portal vein thrombosis: (3) Liver cancer: (4) Cancer cachexia: (5) Liver cirrhosis: (6) Need for comfort care: Plan 64-year-old male with recent diagnosis of hepatocellular carcinoma, no available chemotherapeutic options, recommendation of hospice per oncology, other medical comorbidities including severe cachexia, BMI of only 12, liver cirrhosis, portal hypertension, portal vein thrombosis presenting to the hospital today in an actively dying state. He is hypotensive, obtunded, lethargic, hypothermic and currently having agonal breathing. He appeared to be in mild discomfort in the emergency room and received treatment with morphine and Ativan. He is currently much more comfortable when examined His family including his daughters had an extended discussion with the ER physician and elected to proceed with comfort care management since there is no hope for survival in this situation. Patient's designated DPOA Danis Ga is currently at bedside and agreeable to comfort care management additionally. He will be admitted to the medicine service for comfort care management As needed morphine and as needed Ativan as needed for air hunger/anxiety Unable to place any IV lines therefore would prefer to use medications sublingually. PDMP PDMP Reviewed: Not Reviewed Attestations Medical Necessity Statement*: Comfort care management, patient is in the process of dying, inpatient management for now Coding Level of Care Code Acute Code for Chg Fwd Diagnoses Severe protein-calorie malnutrition E43 Portal vein thrombosis I81 Liver cancer C22.9 Cancer cachexia R64 Liver cirrhosis K74.60 Need for comfort care
[2024-07-27 11:32] VITALS: BP 65/40; PULSE 67; PULSE 80; RESP 12; O2SAT 96
[2024-07-27] MEDS: morphine 10 mg/0.5 mL oral liq UD SUBLINGUAL ×6 (12:39→23:06)
[2024-07-28] MEDS: morphine 10 mg/0.5 mL oral liq UD SUBLINGUAL (01:00)
--- NOTE | 2024-07-28 03:05 | PC.NURSE ---
PT AT 0300. BLENDER CONVEYOR OPERATOR, HOUSE SUP AND DPOA NOTIFIED AT 0302.
--- NOTE | 2024-07-28 03:20 | PC.NURSE ---
[facility] notified of patient at 0308 by this nurse. This nurse spoke with [facility] Coordinator Christi who states that patient is not a candidate for donation through [facility] or [facility] [employer]. Reference #[id number]. Member Of Technical Staff, Ca, notified of patient at 0315 by this nurse.
--- NOTE | 2024-07-28 03:42 | PC.NURSE ---
[facility] contacted by this nurse per family request for services. [facility] to call back with ETA for body transfer.
--- NOTE | 2024-07-28 03:46 | PC.NURSE ---
[facility] contacted this nurse stating their ETA will be approximately 45m. Patient to remain in room for pickup.
--- NOTE | 2024-07-28 04:50 | PC.NURSE ---
[facility] staff here for patient pickup. Off floor at 0450. All personal belongings taken by patient's daughter at 0400.
--- NOTE | 2024-07-29 17:04 | PM.DDS ---
Discharge Providers DDS Date of Admission: 07/27/24 10:22 Date Summary Completed: 07/29/24 Attending Provider at Admission: Marsha Pena MD Time of : 03:00 Attending Provider at Discharge: Marsha Pena MD Primary Care Provider: Kyle Roca MD DS Diagnoses Hospital Diagnoses (1) Severe protein-calorie malnutrition: (2) Portal vein thrombosis: (3) Liver cancer: (4) Cancer cachexia: (5) Liver cirrhosis: (6) Need for comfort care: Reason for Visit Reason for Visit weakness Summary Date and Time of Date of : 07/28/24 Time of : 03:00 Summary Summary: Ashish Forrest was a 64 year old male with a past medical history of hepatitis C associated liver cirrhosis , multiple hepatic mets masses highly suspicious for hepatocellular carcinoma and portal vein thrombosis.. [facility] after having had septic shock and peritonitis about a month ago. He was recently evaluated by the oncology service and was not deemed to be a candidate for any treatment. Hospice was recommended. [facility] With altered mental status and hypotension. He was hypotensive with blood pressure of 65/40, severely hypothermic with temperature of 84.6, he was obtunded, lethargic, did not respond to any stimuli. He had agonal breathing. His daughters and DPOA were at bedside and elected to place patient on comfort care management as he was actively in the process of dying. Patient on comfort care management on 07/28/24 at 0300 hrs. Discharge Plan Discharge Patient Disposition: Condition: Stable DS Attestations Time Spent in /Discharge Care*: greater than 30 min Quality - AMI: AMI present?: No Quality - Stroke: CVA present?: No Quality - VTE: VTE present?: No Coding Level of Care Code Acute Code for Chg Fwd Diagnoses Severe protein-calorie malnutrition E43 Portal vein thrombosis I81 Liver cancer C22.9 Cancer cachexia R64 Liver cirrhosis K74.60 Need for comfort care
== END 2024-07-28 03:00 | disposition expired | DRG 435 ==
LOC: ER 10:25 → MEDSURG 11:09
PROVIDERS: Admitting Provider Student in an Organized Health Care Education/Training Program; Emergency Provider Emergency Medicine; PCP Internal Medicine; Visit Provider Student in an Organized Health Care Education/Training Program
DX: C22.0 Liver cell carcinoma (principal); E43 Unspecified severe protein-calorie malnutrition; I81 Portal vein thrombosis; C79.9 Secondary malignant neoplasm of unspecified site; Z68.1 Body mass index [BMI] 19.9 or less, adult; B19.20 Unspecified viral hepatitis C without hepatic coma; K74.60 Unspecified cirrhosis of liver; I95.9 Hypotension, unspecified; R68.0 Hypothermia, not associated with low environmental temperature; Z51.5 Encounter for palliative care; R62.7 Adult failure to thrive; R41.82 Altered mental status, unspecified; Z79.891 Long term (current) use of opiate analgesic; Z86.16 Personal history of COVID-19
CPT/HCPCS: 96372; 99285; J1171; J2270; J9999